=== PATIENT | female | born 1955 | race Caucasian/White ===

== ENCOUNTER → 2017-09-06 | Outpatient (CLI) | payer OTHER ==
[~2017-09-06] MED LIST: CARVEDILOL; CEPH500 PO; CYCL10 PO; HYDACE5 PO; HYDR1TAB94 PO; LEVOTHYROXINE; NAPR500 PO; Naprosyn500 MG PO; OXYACE5T PO; PRED10 PO; Percocet 5-3251 EACH PO; SULTRIDS PO; Zofran Odt8 MG SL; [UNRECOGNIZED DRUG - REMARK]
== END ==
LOC: LAB EV 11:59 → LAB SHORT 11:59
DX: E03.9 Hypothyroidism, unspecified (principal)
CPT/HCPCS: 84443

== ENCOUNTER 2018-12-08 06:16 | Day surgery (SDC) | payer OTHER ==
[~2018-12-08] VITALS: Ht 172.7 cm; Wt 81.5 kg
[~2018-12-08 06:16] MED LIST changes: +Daily Multiple1 EACH PO; +Prinivil10 MG PO; +SYNTHROID150 MC1 PO; +TRIPLE MAGNESI400 MG PO
[2018-12-08] MEDS ORDERED: Collagen Plus1 EACH (06:47)
--- NOTE | 2018-12-08 06:59 | NUR ---
12/08/18 0659 Jeanette Plunkett PRE OP TEACHING DONE. PT IS RESTING IN BED WITH CALL LIGHT IN REACH. NO FAMILY PRESENT.
== END 2018-12-08 09:20 | disposition home or self-care (01) ==
LOC: ORSCSDS 06:16
PROVIDERS: Orthopaedic Surgery
PROC: 0LN80ZZ Release Left Hand Tendon, Open Approach (ICD-10-PCS; principal; 2018-12-08 07:30)
PROC: 01N50ZZ Release Median Nerve, Open Approach (ICD-10-PCS; principal; 2018-12-08 07:30)
DX: G56.02 Carpal tunnel syndrome, left upper limb (principal); M65.312 Trigger thumb, left thumb; E03.9 Hypothyroidism, unspecified; M79.7 Fibromyalgia; Z79.899 Other long term (current) drug therapy
CPT/HCPCS: J0690; J1100; J1885; J2250; J2405; J2704; J3010; J7120

== ENCOUNTER → 2019-03-18 | Outpatient (CLI) | payer OTHER ==
[~2019-03-18] MED LIST changes: +Collagen Plus1 EACH
[2019-03-18 14:02] LABS: BASOPHILS ABSOLUTE AUTO 0.07 K/mm3 (0.00-0.23); BASOPHILS PERCENT AUTO 1 % (0-2); EOSINOPHILS ABSOLUTE AUTO 0.45 K/mm3 (0.00-0.68); EOSINOPHILS PERCENT AUTO 4 % (0-6); Hematocrit 40.1 % (33.0-51.0); Hemoglobin 13.7 g/dL (11.5-16.0); IMMATURE GRAN ABSOLUTE AUTO 0.06 K/mm3 (0.00-0.10); IMMATURE GRAN PERCENT AUTO 1 % (0-1); LYMPHOCYTES ABSOLUTE AUTO 1.83 K/mm3 (0.84-5.20); LYMPHOCYTES PERCENT AUTO 15 % (21-46); MONOCYTES ABSOLUTE AUTO 0.49 K/mm3 (0.16-1.47); MONOCYTES PERCENT AUTO 4 % (4-13); Mean Corpuscular HGB 31.5 pg (26.0-34.0); Mean Corpuscular HGB Conc 34.2 g/dL (31.5-36.5); Mean Corpuscular Volume 92 fL (80-100); Mean Platelet Volume 9.5 fL (9.1-12.4); NEUTROPHILS PERCENT AUTO 76 % (41-73); Platelet Count 369 K/mm3 (150-400); RDW Coefficient Variation 12.9 % (11.7-14.2); RDW Standard Deviation 43.7 fL (35.1-46.3); Red Blood Cell Count 4.35 M/mm3 (3.80-5.20)
[2019-03-18 14:09] LABS: Albumin, Blood 4.4 g/dL (3.4-5.0); Albumin/Globulin Ratio 1.1 (0.8-1.8); Bilirubin, Total 0.2 mg/dL (0.1-1.0); Bun/Creatinine Ratio 15.7 (12.0-20.0); Calcium, Blood 9.2 mg/dL (8.5-10.1); Creatinine, Blood 1.78 mg/dL (0.40-1.00); Globulin, Blood 3.9 g/dL (2.2-4.0); Potassium, Blood 3.7 mmol/L (3.5-5.5); Thyroid Stimulating Hormone 78.453 uIU/mL (0.360-4.800); Total Protein, Blood 8.3 g/dL (6.4-8.2)
== END | disposition home or self-care (01) ==
LOC: LAB EV 13:44 → LAB SHORT 13:44
PROVIDERS: Physician Assistant
DX: E03.9 Hypothyroidism, unspecified (principal); R73.9 Hyperglycemia, unspecified
CPT/HCPCS: 80053; 83036; 84443; 85025

== ENCOUNTER → 2019-04-24 | Outpatient (CLI) | payer OTHER ==
[2019-04-24 18:18] LABS: Source, Urine Clean Catch
[2019-04-24 18:33] LABS: Bacteria Not Seen /hpf; Red Blood Cells, Urine 0-2 /hpf (0-2); Squamous Epithelial Cells Rare /hpf (Few); White Blood Cells, Urine 0-2 /hpf (0-5)
== END | disposition home or self-care (01) ==
LOC: LAB EV 09:30 → LAB SHORT 09:30
PROVIDERS: Physician Assistant
DX: R94.4 Abnormal results of kidney function studies (principal)
CPT/HCPCS: 81015

== ENCOUNTER 2019-12-19 09:23 | Day surgery (SDC) | payer OTHER ==
[~2019-12-19] VITALS: Ht 172.7 cm; Wt 88.7 kg
[2019-12-19 12:22] LABS: BASOPHILS ABSOLUTE AUTO 0.04 K/mm3 (0.00-0.23); BASOPHILS PERCENT AUTO 0 % (0-2); EOSINOPHILS PERCENT AUTO 5 % (0-6); Hematocrit 33.8 % (33.0-51.0); Hemoglobin 10.7 g/dL (11.5-16.0); IMMATURE GRAN ABSOLUTE AUTO 0.06 K/mm3 (0.00-0.10); IMMATURE GRAN PERCENT AUTO 1 % (0-1); LYMPHOCYTES PERCENT AUTO 16 % (21-46); MONOCYTES ABSOLUTE AUTO 0.67 K/mm3 (0.16-1.47); MONOCYTES PERCENT AUTO 6 % (4-13); Mean Corpuscular HGB 27.9 pg (26.0-34.0); Mean Corpuscular HGB Conc 31.7 g/dL (31.5-36.5); Mean Corpuscular Volume 88 fL (80-100); Mean Platelet Volume 9.6 fL (9.1-12.4); NEUTROPHILS ABSOLUTE AUTO 7.45 K/mm3 (1.96-9.15); NEUTROPHILS PERCENT AUTO 72 % (41-73); Platelet Count 344 K/mm3 (150-400); RDW Standard Deviation 41.2 fL (35.1-46.3); Red Blood Cell Count 3.84 M/mm3 (3.80-5.20); White Blood Cell Count 10.42 K/mm3 (4.00-11.30)
[2019-12-19 14:11] LABS: Alanine Aminotransfer (ALT/SGP 24 U/L (12-78); Albumin, Blood 3.4 g/dL (3.4-5.0); Alk Phos 105 U/L (50-136); Anion Gap 9 mmol/L (6-16); Aspartate Aminotrans (AST/SGOT 7 U/L (12-37); Bilirubin, Total 0.4 mg/dL (0.1-1.0); Blood Urea Nitrogen 12 mg/dL (8-24); Bun/Creatinine Ratio 14.5 (12.0-20.0); CO2, Blood 23 mmol/L (21-32); Chloride, Blood 112 mmol/L (98-108); Creatinine, Blood 0.83 mg/dL (0.40-1.00); Globulin, Blood 3.5 g/dL (2.2-4.0); Glomerular Filtration Rate >60 (60-); Glucose, Blood 112 mg/dL (70-99); Potassium, Blood 3.6 mmol/L (3.5-5.5); Sodium, Blood 144 mmol/L (136-145); Total Protein, Blood 6.9 g/dL (6.4-8.2)
== END 2019-12-19 12:19 | disposition home or self-care (01) ==
LOC: ORSCSDS 09:23
PROVIDERS: Internal Medicine Gastroenterology
PROC: 0DBP8ZX Excision of Rectum, Via Natural or Artificial Opening Endoscopic, Diagnostic (ICD-10-PCS; principal; 2019-12-19 11:00)
DX: K62.5 Hemorrhage of anus and rectum (principal); C20 Malignant neoplasm of rectum; K63.89 Other specified diseases of intestine; I10 Essential (primary) hypertension; E03.9 Hypothyroidism, unspecified; E66.9 Obesity, unspecified; Z68.32 Body mass index [BMI] 32.0-32.9, adult; Z79.899 Other long term (current) drug therapy
CPT/HCPCS: 80053; 82378; 85025; 88305; J2704; J7120

== ENCOUNTER 2020-04-13 19:46 | Emergency (ER) | payer OTHER ==
[~2020-04-13] VITALS: Ht 165.1 cm; Wt 88.5 kg
[2020-04-13 20:48] LABS: BASOPHILS ABSOLUTE AUTO 0.01 K/mm3 (0.00-0.23); BASOPHILS PERCENT AUTO 0 % (0-2); EOSINOPHILS ABSOLUTE AUTO 0.07 K/mm3 (0.00-0.68); EOSINOPHILS PERCENT AUTO 2 % (0-6); Hematocrit 32.1 % (33.0-51.0); IMMATURE GRAN ABSOLUTE AUTO 0.01 K/mm3 (0.00-0.10); IMMATURE GRAN PERCENT AUTO 0 % (0-1); LYMPHOCYTES PERCENT AUTO 31 % (21-46); MONOCYTES ABSOLUTE AUTO 0.34 K/mm3 (0.16-1.47); MONOCYTES PERCENT AUTO 8 % (4-13); Mean Corpuscular HGB 30.7 pg (26.0-34.0); Mean Corpuscular HGB Conc 34.3 g/dL (31.5-36.5); Mean Corpuscular Volume 90 fL (80-100); NEUTROPHILS PERCENT AUTO 59 % (41-73); Platelet Count 105 K/mm3 (150-400); RDW Coefficient Variation 16.3 % (11.7-14.2); RDW Standard Deviation 53.1 fL (35.1-46.3); Red Blood Cell Count 3.58 M/mm3 (3.80-5.20); White Blood Cell Count 4.23 K/mm3 (4.00-11.30)
[2020-04-13] MEDS ORDERED: METO10 PO (21:03)
[2020-04-13 21:08] LABS: Alanine Aminotransfer (ALT/SGP 42 U/L (12-78); Albumin, Blood 3.2 g/dL (3.4-5.0); Alk Phos 119 U/L (50-136); Anion Gap 9 mmol/L (6-16); Aspartate Aminotrans (AST/SGOT 22 U/L (12-37); Bilirubin, Total 0.5 mg/dL (0.1-1.0); Blood Urea Nitrogen 28 mg/dL (8-24); Bun/Creatinine Ratio 26.2 (12.0-20.0); CO2, Blood 27 mmol/L (21-32); Calcium, Blood 8.6 mg/dL (8.5-10.1); Chloride, Blood 100 mmol/L (98-108); Creatinine, Blood 1.07 mg/dL (0.40-1.00); Globulin, Blood 3.3 g/dL (2.2-4.0); Glomerular Filtration Rate 55 (60-); Glucose, Blood 254 mg/dL (70-99); Potassium, Blood 3.4 mmol/L (3.5-5.5); Sodium, Blood 136 mmol/L (136-145); Total Protein, Blood 6.5 g/dL (6.4-8.2); Troponin I <0.015 ng/mL (0.000-0.040)
== END 2020-04-13 23:42 | disposition home or self-care (01) ==
LOC: ER 19:46
PROVIDERS: Student in an Organized Health Care Education/Training Program
DX: E86.0 Dehydration (principal); Z88.5 Allergy status to narcotic agent; Z88.8 Allergy status to other drugs, medicaments and biological substances; Z79.899 Other long term (current) drug therapy; Z87.891 Personal history of nicotine dependence
CPT/HCPCS: 36415; 80053; 82947; 84484; 85025; 93005; 93010; 96360; 99284-25; J7030

== ENCOUNTER 2020-04-22 15:21 | Day surgery (SDC) | payer OTHER ==
[~2020-04-22 15:21] MED LIST changes: +METO10 PO
== END 2020-04-22 22:51 | disposition home or self-care (01) ==
LOC: RAD 15:21
DX: I97.89 Other postprocedural complications and disorders of the circulatory system, not elsewhere classified (principal); C20 Malignant neoplasm of rectum; Z79.899 Other long term (current) drug therapy; Z88.5 Allergy status to narcotic agent; Z88.8 Allergy status to other drugs, medicaments and biological substances; Y84.0 Cardiac catheterization as the cause of abnormal reaction of the patient, or of later complication, without mention of misadventure at the time of the procedure
CPT/HCPCS: 36598; Q9967

== ENCOUNTER 2020-04-25 09:47 | Day surgery (SDC) | payer OTHER | END 2020-04-25 13:54 | disposition home or self-care (01) | LOC: ATC 09:47 | DX: Z45.1 Encounter for adjustment and management of infusion pump (principal); C20 Malignant neoplasm of rectum; E03.9 Hypothyroidism, unspecified; I10 Essential (primary) hypertension; G47.00 Insomnia, unspecified; G25.81 Restless legs syndrome; M79.7 Fibromyalgia; Z88.5 Allergy status to narcotic agent; Z88.8 Allergy status to other drugs, medicaments and biological substances | CPT/HCPCS: J1642 ==

== ENCOUNTER 2020-04-27 09:25 | Emergency (ER) | payer OTHER ==
[~2020-04-27] VITALS: Ht 172.7 cm; Wt 88.0 kg
[2020-04-27 10:08] LABS: BASOPHILS ABSOLUTE AUTO 0.03 K/mm3 (0.00-0.23); BASOPHILS PERCENT AUTO 1 % (0-2); EOSINOPHILS ABSOLUTE AUTO 0.07 K/mm3 (0.00-0.68); EOSINOPHILS PERCENT AUTO 2 % (0-6); Hemoglobin 12.5 g/dL (11.5-16.0); IMMATURE GRAN ABSOLUTE AUTO 0.01 K/mm3 (0.00-0.10); IMMATURE GRAN PERCENT AUTO 0 % (0-1); LYMPHOCYTES ABSOLUTE AUTO 1.41 K/mm3 (0.84-5.20); LYMPHOCYTES PERCENT AUTO 33 % (21-46); MONOCYTES ABSOLUTE AUTO 0.17 K/mm3 (0.16-1.47); MONOCYTES PERCENT AUTO 4 % (4-13); Mean Corpuscular HGB 30.4 pg (26.0-34.0); Mean Corpuscular HGB Conc 32.9 g/dL (31.5-36.5); Mean Corpuscular Volume 93 fL (80-100); NEUTROPHILS ABSOLUTE AUTO 2.59 K/mm3 (1.96-9.15); NEUTROPHILS PERCENT AUTO 61 % (41-73); Platelet Count 166 K/mm3 (150-400); RDW Coefficient Variation 16.6 % (11.7-14.2); RDW Standard Deviation 55.9 fL (35.1-46.3); Red Blood Cell Count 4.11 M/mm3 (3.80-5.20); White Blood Cell Count 4.28 K/mm3 (4.00-11.30)
[2020-04-27 10:25] LABS: Alanine Aminotransfer (ALT/SGP 58 U/L (12-78); Albumin, Blood 3.7 g/dL (3.4-5.0); Albumin/Globulin Ratio 0.9 (0.8-1.8); Alk Phos 153 U/L (50-136); Anion Gap 11 mmol/L (6-16); Aspartate Aminotrans (AST/SGOT 37 U/L (12-37); Bilirubin, Total 0.7 mg/dL (0.1-1.0); Blood Urea Nitrogen 23 mg/dL (8-24); CO2, Blood 25 mmol/L (21-32); Calcium, Blood 8.9 mg/dL (8.5-10.1); Chloride, Blood 103 mmol/L (98-108); Creatinine, Blood 0.82 mg/dL (0.40-1.00); Glomerular Filtration Rate >60 (60-); Glucose, Blood 153 mg/dL (70-99); Potassium, Blood 3.2 mmol/L (3.5-5.5); Sodium, Blood 139 mmol/L (136-145); Total Protein, Blood 7.7 g/dL (6.4-8.2)
[2020-04-27 10:55] LABS: Source, Urine Clean Catch
[2020-04-27 11:00] LABS: Appearance, Urine Clear (Clear); Bilirubin, Urine Neg (Neg); Blood, Urine 5+ (Neg); Color, Urine Amber (P-Yellow); Glucose Qualitative, Urine Neg (Neg); Ketones, Urine Neg (Neg); Leukocyte Esterase, Urine 2+ (Neg); Nitrite, Urine Neg (Neg); Protein, Urine 1+ (Neg); Specific Gravity, Urine 1.015 (1.003-1.022); Urobilinogen, Urine 1+ (Normal)
[2020-04-27 11:22] LABS: Mucus Mod (0-Heavy)
[2020-04-27 11:23] LABS: Hyaline Casts 0-2 /lpf (0-2); Red Blood Cells, Urine 0-2 /hpf (0-2); Squamous Epithelial Cells Few /hpf (Few)
[2020-04-27 11:24] LABS: Bacteria Few /hpf
== END 2020-04-27 13:46 | disposition home or self-care (01) ==
LOC: ER 09:25
PROVIDERS: Physician Assistant
DX: N93.9 Abnormal uterine and vaginal bleeding, unspecified (principal); Z79.899 Other long term (current) drug therapy; Z87.891 Personal history of nicotine dependence
CPT/HCPCS: 36415; 74177; 80053; 81001; 85025; 87086; 96374; 99284-25; J2060; Q9967

== ENCOUNTER 2020-05-20 07:40 | Day surgery (SDC) | payer OTHER ==
[~2020-05-20] VITALS: Ht 170.2 cm; Wt 84.7 kg
--- NOTE | 2020-05-20 08:57 | NUR ---
Ambulatory in Day Surgery History, Chart, Medications and Allergies reviewed before start of procedure. Lungs clear T/O to Auscultation. Patient confirms NPO status and agrees with scheduled surgery. Patient States Post-Procedure ride home has been arranged. Pre-Op teaching done. Pt verbalizes understanding.
--- NOTE | 2020-05-20 11:37 | NUR ---
Patient up to Ambulate independently. Gait steady. Discharge instructions reviewed with patient. Patient verbalizes understanding. Copy given to patient to take home. Discharged via wheelchair to private car for ride home. DENIES PAIN, REPORTS MILD SORENES, STATES FEELS WILL BE OK AT HOME WITHOUT NARCOTIC PAIN MEDS. DENIES NAUSEA.
== END 2020-05-20 11:32 | disposition home or self-care (01) ==
LOC: ORSCMMR 07:40 → ORD 09:30 → ORSCMMR 09:30
PROVIDERS: Surgery
PROC: B5141ZA Fluoroscopy of Left Jugular Veins using Low Osmolar Contrast, Guidance (ICD-10-PCS; principal; 2020-05-20 09:30)
PROC: 05HN33Z Insertion of Infusion Device into Left Internal Jugular Vein, Percutaneous Approach (ICD-10-PCS; principal; 2020-05-20 09:30)
DX: C20 Malignant neoplasm of rectum (principal); Z45.2 Encounter for adjustment and management of vascular access device; I10 Essential (primary) hypertension; E03.9 Hypothyroidism, unspecified; M79.7 Fibromyalgia; Z79.899 Other long term (current) drug therapy
CPT/HCPCS: J1100; J2250; J2405; J2704; J3010; J7120

== ENCOUNTER 2020-05-29 18:06 | Observation (INO) | payer OTHER ==
[~2020-05-29] VITALS: Ht 172.7 cm; Wt 82.5 kg
[2020-05-29 18:45] LABS: BASOPHILS PERCENT AUTO 0 % (0-2); EOSINOPHILS PERCENT AUTO 0 % (0-6); Hemoglobin 12.3 g/dL (11.5-16.0); IMMATURE GRAN ABSOLUTE AUTO 0.02 K/mm3 (0.00-0.10); IMMATURE GRAN PERCENT AUTO 0 % (0-1); LYMPHOCYTES ABSOLUTE AUTO 0.55 K/mm3 (0.84-5.20); LYMPHOCYTES PERCENT AUTO 12 % (21-46); MONOCYTES ABSOLUTE AUTO 0.45 K/mm3 (0.16-1.47); MONOCYTES PERCENT AUTO 10 % (4-13); Mean Corpuscular HGB 31.5 pg (26.0-34.0); Mean Corpuscular HGB Conc 34.2 g/dL (31.5-36.5); Mean Corpuscular Volume 92 fL (80-100); Mean Platelet Volume 10.6 fL (9.1-12.4); NEUTROPHILS ABSOLUTE AUTO 3.59 K/mm3 (1.96-9.15); NEUTROPHILS PERCENT AUTO 78 % (41-73); Platelet Count 143 K/mm3 (150-400); RDW Coefficient Variation 14.1 % (11.7-14.2); Red Blood Cell Count 3.91 M/mm3 (3.80-5.20); White Blood Cell Count 4.61 K/mm3 (4.00-11.30)
[2020-05-29 19:10] LABS: Albumin, Blood 3.7 g/dL (3.4-5.0); Bilirubin, Total 0.6 mg/dL (0.1-1.0); Bun/Creatinine Ratio 28.8 (12.0-20.0); Calcium, Blood 8.9 mg/dL (8.5-10.1); Creatinine, Blood 1.77 mg/dL (0.40-1.00); Globulin, Blood 3.8 g/dL (2.2-4.0); Potassium, Blood 3.7 mmol/L (3.5-5.5); Total Protein, Blood 7.5 g/dL (6.4-8.2)
[2020-05-29] MEDS ORDERED: CAPECITABINE150 MG PO (20:58)
[2020-05-29] MEDS ORDERED: CHLO25B PO (20:59)
[2020-05-29] MEDS ORDERED: CAPECITABINE500 MG PO (20:59)
[2020-05-29] MEDS ORDERED: ZESTRIL40 M1 PO (20:59)
[2020-05-29] MEDS ORDERED: EUTHYROX137 MC1 PO (20:59)
[2020-05-29] MEDS ORDERED: PROZAC20 M3 PO (21:00)
--- NOTE | 2020-05-30 01:09 | NUR ---
ADMIT NOTE RECEIVED HANDOFF FROM ER NURSE LOREE. PT ARRIVED ON FLOOR VIA WHEELCHAIR. PERSONAL POSSESSIONS WITH PT. PT ORIENTED TO UNIT. CALL BUTTON WITHIN REACH. NS W/KCL 20 MEQ INFUSING @ 150 ML/HR ORDERED.
[2020-05-30 05:59] LABS: BASOPHILS ABSOLUTE AUTO 0.01 K/mm3 (0.00-0.23); BASOPHILS PERCENT AUTO 0 % (0-2); EOSINOPHILS PERCENT AUTO 0 % (0-6); Hematocrit 30.3 % (33.0-51.0); Hemoglobin 10.2 g/dL (11.5-16.0); IMMATURE GRAN ABSOLUTE AUTO 0.01 K/mm3 (0.00-0.10); IMMATURE GRAN PERCENT AUTO 0 % (0-1); LYMPHOCYTES ABSOLUTE AUTO 0.79 K/mm3 (0.84-5.20); LYMPHOCYTES PERCENT AUTO 31 % (21-46); MONOCYTES PERCENT AUTO 12 % (4-13); Mean Corpuscular HGB 31.7 pg (26.0-34.0); Mean Corpuscular HGB Conc 33.7 g/dL (31.5-36.5); Mean Corpuscular Volume 94 fL (80-100); Mean Platelet Volume 10.3 fL (9.1-12.4); NEUTROPHILS ABSOLUTE AUTO 1.42 K/mm3 (1.96-9.15); NEUTROPHILS PERCENT AUTO 56 % (41-73); Platelet Count 100 K/mm3 (150-400); RDW Standard Deviation 48.8 fL (35.1-46.3); Red Blood Cell Count 3.22 M/mm3 (3.80-5.20); White Blood Cell Count 2.53 K/mm3 (4.00-11.30)
[2020-05-30 06:16] LABS: Albumin, Blood 2.6 g/dL (3.4-5.0); Anion Gap 6 mmol/L (6-16); Blood Urea Nitrogen 43 mg/dL (8-24); Bun/Creatinine Ratio 29.3 (12.0-20.0); CO2, Blood 23 mmol/L (21-32); Calcium, Blood 7.4 mg/dL (8.5-10.1); Chloride, Blood 112 mmol/L (98-108); Creatinine, Blood 1.47 mg/dL (0.40-1.00); Glomerular Filtration Rate 38 (60-); Glucose, Blood 79 mg/dL (70-99); Phosphorus, Blood 2.8 mg/dL (2.5-4.9); Potassium, Blood 3.9 mmol/L (3.5-5.5); Sodium, Blood 141 mmol/L (136-145); Thyroid Stimulating Hormone 0.085 uIU/mL (0.360-4.800)
--- NOTE | 2020-05-30 19:26 | NUR ---
a+o, able to self transfer to bathroom with sba r/iv lines, no acute changes noted during shift, no bm so still in isolation for ruling out cdif, rm air, fluids infusing with no s/sx of infection or infiltration, no acute changes noted during shift, bsr shared with noc nurse and pt
[2020-05-30 21:30] LABS: Source, Urine Clean Catch
[2020-05-30 21:34] LABS: Appearance, Urine Clear (Clear); Bilirubin, Urine Neg (Neg); Blood, Urine Neg (Neg); Color, Urine Yellow (P-Yellow); Glucose Qualitative, Urine Neg (Neg); Ketones, Urine Neg (Neg); Leukocyte Esterase, Urine 1+ (Neg); Nitrite, Urine Neg (Neg); Protein, Urine Neg (Neg); Specific Gravity, Urine 1.015 (1.003-1.022); Urobilinogen, Urine NORM (Normal)
[2020-05-30 21:46] LABS: Bacteria Rare /hpf; Red Blood Cells, Urine Not Seen /hpf (0-2); Squamous Epithelial Cells Rare /hpf (Few); White Blood Cells, Urine 0-2 /hpf (0-5)
[2020-05-31 05:05] LABS: BASOPHILS PERCENT AUTO 0 % (0-2); EOSINOPHILS ABSOLUTE AUTO 0.01 K/mm3 (0.00-0.68); EOSINOPHILS PERCENT AUTO 0 % (0-6); Hematocrit 29.9 % (33.0-51.0); IMMATURE GRAN ABSOLUTE AUTO 0.01 K/mm3 (0.00-0.10); IMMATURE GRAN PERCENT AUTO 0 % (0-1); LYMPHOCYTES ABSOLUTE AUTO 0.56 K/mm3 (0.84-5.20); LYMPHOCYTES PERCENT AUTO 24 % (21-46); MONOCYTES ABSOLUTE AUTO 0.19 K/mm3 (0.16-1.47); MONOCYTES PERCENT AUTO 8 % (4-13); Mean Corpuscular HGB 31.3 pg (26.0-34.0); Mean Corpuscular HGB Conc 33.4 g/dL (31.5-36.5); Mean Corpuscular Volume 94 fL (80-100); Mean Platelet Volume 10.4 fL (9.1-12.4); NEUTROPHILS ABSOLUTE AUTO 1.61 K/mm3 (1.96-9.15); NEUTROPHILS PERCENT AUTO 68 % (41-73); Platelet Count 82 K/mm3 (150-400); RDW Coefficient Variation 13.8 % (11.7-14.2); RDW Standard Deviation 47.3 fL (35.1-46.3); Red Blood Cell Count 3.19 M/mm3 (3.80-5.20); White Blood Cell Count 2.38 K/mm3 (4.00-11.30)
--- NOTE | 2020-05-31 05:43 | NUR ---
SHIFT SUMMARY- PT. A&O, SBA CALLS APPROPRIATELY. HAD NO COMPLAINTS DURING THE NIGHT. LOW GRADE TEMP NOTED LAST NIGHT, NEW ORDERS IN PLACE BY DR. CARDONA. PT. STARTED ON IV ABX'S, TOLERATING WELL. ISOLATION DC'D, UNABLE TO OBTAIN STOOL SPECIMEN. PT. DENIES BM. PT APPEARED TO HAVE RESTED COMFORTABLY T/O THE NIGHT, NO APPARENT DISTRESS NOTED. THIS AM VSS. CALL LIGHT WITHIN REACH AND SIDE RAILS UPX2. WILL CONT TO MONITOR.
[2020-05-31 05:46] LABS: Albumin, Blood 2.5 g/dL (3.4-5.0); Albumin/Globulin Ratio 0.7 (0.8-1.8); Bilirubin, Total 0.4 mg/dL (0.1-1.0); Bun/Creatinine Ratio 25.2 (12.0-20.0); Calcium, Blood 7.8 mg/dL (8.5-10.1); Creatinine, Blood 0.99 mg/dL (0.40-1.00); Globulin, Blood 3.4 g/dL (2.2-4.0); Potassium, Blood 4.3 mmol/L (3.5-5.5); Total Protein, Blood 5.9 g/dL (6.4-8.2)
[2020-05-31 14:06] LABS: Influenza A, PCR NEGATIVE (NEGATIVE); Influenza B, PCR NEGATIVE (NEGATIVE); Resp Syncytial Virus, PCR NEGATIVE (NEGATIVE)
[2020-05-31 14:21] LABS: SARS-Cov-2 (COVID-19) PCR, MMC POSITIVE (NEGATIVE)
--- NOTE | 2020-05-31 18:32 | NUR ---
SHIFT SUMMARY PT A/O X4 AND ANXIOUS. AFTER FINDING SIGNS OF PNEUMONIA ON HER CHEST X-RAY THE PATIENT WAS TESTED FOR COVID-19 AND TESTING POSITIVE. PHYSICIAN MADE AWARE AND EXPOSED EMPLOYEES NOTIFIED. PT IS SHOWING NO SIGNS OF HYPOXIA OR RESPIRATORY DISTRESS. PT TEMPERATURE SLIGHTLY ELEVATED AT TIMES. VERY ANXIOUS DUE TO THE POSIBILITY OF DISCHARGE. PT IS THE PRIMARY CAREGIVER OF DISABLED AND IS WORRIED ABOUT EXPOSURE. MEDICATED X1 FOR ANXIETY. BESIDES SLIGHTLY ELEVATE TEMP; VSS. WILL REPORT TO NOC RN.
--- NOTE | 2020-06-01 05:24 | NUR ---
SHIFT SUMMARY- NO ACUTE EVENTS OVERNIGHT. PT. ASLEEP MOST OF THE SHIFT, NO APPARENT DISTRESS NOTED. COVID POS, NO C/O PAIN/DISCOMFORT OR SOB DURING THE NIGHT. STARTED ON DECADRON LAST NIGHT. LOW GRADE TEMP, OTHER VITALS STABLE. MEDICATED WITH TYLENOL PER EMAR WITH GOOD EFFECT. PT. DENIES NEEDS AT THIS TIME. CALL LIGHT WITHIN REACH AND SIDE RAILS UPX2. WILL CONT TO MONITOR.
[2020-06-01 05:48] LABS: BASOPHILS PERCENT AUTO 0 % (0-2); EOSINOPHILS PERCENT AUTO 0 % (0-6); Hematocrit 33.9 % (33.0-51.0); Hemoglobin 11.8 g/dL (11.5-16.0); IMMATURE GRAN ABSOLUTE AUTO 0.03 K/mm3 (0.00-0.10); IMMATURE GRAN PERCENT AUTO 1 % (0-1); LYMPHOCYTES ABSOLUTE AUTO 0.35 K/mm3 (0.84-5.20); LYMPHOCYTES PERCENT AUTO 15 % (21-46); MONOCYTES ABSOLUTE AUTO 0.12 K/mm3 (0.16-1.47); MONOCYTES PERCENT AUTO 5 % (4-13); Mean Corpuscular HGB 31.5 pg (26.0-34.0); Mean Corpuscular HGB Conc 34.8 g/dL (31.5-36.5); Mean Corpuscular Volume 90 fL (80-100); Mean Platelet Volume 10.3 fL (9.1-12.4); NEUTROPHILS ABSOLUTE AUTO 1.92 K/mm3 (1.96-9.15); NEUTROPHILS PERCENT AUTO 79 % (41-73); Platelet Count 92 K/mm3 (150-400); RDW Coefficient Variation 13.2 % (11.7-14.2); RDW Standard Deviation 44.3 fL (35.1-46.3); Red Blood Cell Count 3.75 M/mm3 (3.80-5.20); White Blood Cell Count 2.42 K/mm3 (4.00-11.30)
[2020-06-01 06:03] LABS: Alanine Aminotransfer (ALT/SGP 64 U/L (12-78); Albumin, Blood 2.8 g/dL (3.4-5.0); Albumin/Globulin Ratio 0.7 (0.8-1.8); Alk Phos 218 U/L (50-136); Anion Gap 7 mmol/L (6-16); Aspartate Aminotrans (AST/SGOT 80 U/L (12-37); Bilirubin, Total 0.9 mg/dL (0.1-1.0); Blood Urea Nitrogen 16 mg/dL (8-24); Bun/Creatinine Ratio 18.5 (12.0-20.0); CO2, Blood 22 mmol/L (21-32); Calcium, Blood 8.2 mg/dL (8.5-10.1); Chloride, Blood 111 mmol/L (98-108); Creatinine, Blood 0.86 mg/dL (0.40-1.00); Globulin, Blood 3.9 g/dL (2.2-4.0); Glomerular Filtration Rate >60 (60-); Glucose, Blood 136 mg/dL (70-99); Potassium, Blood 3.9 mmol/L (3.5-5.5); Sodium, Blood 140 mmol/L (136-145); Total Protein, Blood 6.7 g/dL (6.4-8.2)
[2020-06-01] MEDS ORDERED: AMOCLA500 PO (14:56)
[2020-06-01] MEDS ORDERED: LORA.5 PO (14:56)
--- NOTE | 2020-06-01 15:58 | NUR ---
DISCHARGE SUMMARY PT AXO, COOPERATIVE WITH CARE. DISCHARGED TO HOME PER ORDERS. IV DC'D AND BELONGINGS RETURNED. PT LEFT ROOM VIA WHEELCHAIR WITH RN ESCORT. PT EDUCATED ON ALL DC INSTRUCTION, ALL QUESTIONS ANSWERED. PT AGREES. PRESCRIPTIONS FAXED TO [facility].
--- NOTE | 2020-06-01 16:07 | NUR ---
PRESCRIPTION PT DISCHARGED PRIOR TO HAVING PRESCRIPTION IN HAND. THIS NURSE RECEIVED PRESCRIPTION AND CALLED PATIENT TO COME BACK FOR IT. PT STATED THAT SHE WAS ALREADY HOME AND MAY OR MAY NOT SEND SOMEONE TO PICK IT UP. PRESCRIPTION AT MAIN NURSE STATION AT THIS TIME. CHARGE NURSE AWARE.
[2020-06-02] MEDS ORDERED: CHLO25B PO (11:44)
[2020-06-02] MEDS ORDERED: Ropinirole HCl1 MG PO (20:42)
== END 2020-06-01 15:35 | disposition home or self-care (01) ==
LOC: ER 18:06 → MEDS 23:50
PROVIDERS: Internal Medicine; Nurse Practitioner Acute Care; Physician Assistant; ADMIT Internal Medicine
DX: R11.2 Nausea with vomiting, unspecified (principal); R50.9 Fever, unspecified; D61.818 Other pancytopenia; C20 Malignant neoplasm of rectum; U07.1 COVID-19; D84.9 Immunodeficiency, unspecified
CPT/HCPCS: 0241U; 36415; 71045; 80053; 80069; 81001; 83605; 84443; 85025; 87040; 87086; 96361; 96365; 96366; 96372; 96375; 96376; 99285-25; A9270; G0378; J1650; J2405; J2543; J2550; J3370; J3480; J7030

== ENCOUNTER 2020-06-01 21:33 | Inpatient (IN) | payer OTHER ==
[~2020-06-01] VITALS: Ht 162.6 cm; Wt 79.0 kg
[~2020-06-01 21:33] MED LIST changes: +AMOCLA500 PO; +CAPECITABINE150 MG PO; +CAPECITABINE500 MG PO; +CHLO25B PO; +EUTHYROX137 MC1 PO; +LORA.5 PO; +PROZAC20 M3 PO; +ZESTRIL40 M1 PO
[2020-06-01 23:20] LABS: BASOPHILS ABSOLUTE AUTO 0.01 K/mm3 (0.00-0.23); BASOPHILS PERCENT AUTO 0 % (0-2); EOSINOPHILS PERCENT AUTO 0 % (0-6); Hematocrit 33.4 % (33.0-51.0); Hemoglobin 11.8 g/dL (11.5-16.0); IMMATURE GRAN ABSOLUTE AUTO 0.05 K/mm3 (0.00-0.10); IMMATURE GRAN PERCENT AUTO 1 % (0-1); LYMPHOCYTES ABSOLUTE AUTO 0.63 K/mm3 (0.84-5.20); LYMPHOCYTES PERCENT AUTO 9 % (21-46); MONOCYTES ABSOLUTE AUTO 0.37 K/mm3 (0.16-1.47); MONOCYTES PERCENT AUTO 5 % (4-13); Mean Corpuscular HGB 31.3 pg (26.0-34.0); Mean Corpuscular HGB Conc 35.3 g/dL (31.5-36.5); Mean Corpuscular Volume 89 fL (80-100); Mean Platelet Volume 10.4 fL (9.1-12.4); NEUTROPHILS ABSOLUTE AUTO 5.83 K/mm3 (1.96-9.15); NEUTROPHILS PERCENT AUTO 85 % (41-73); Platelet Count 128 K/mm3 (150-400); RDW Coefficient Variation 13.3 % (11.7-14.2); RDW Standard Deviation 43.2 fL (35.1-46.3); Red Blood Cell Count 3.77 M/mm3 (3.80-5.20); White Blood Cell Count 6.89 K/mm3 (4.00-11.30)
[2020-06-01 23:39] LABS: Alanine Aminotransfer (ALT/SGP 54 U/L (12-78); Albumin, Blood 2.8 g/dL (3.4-5.0); Albumin/Globulin Ratio 0.8 (0.8-1.8); Alk Phos 196 U/L (50-136); Anion Gap 10 mmol/L (6-16); Aspartate Aminotrans (AST/SGOT 56 U/L (12-37); Bilirubin, Total 0.7 mg/dL (0.1-1.0); Blood Urea Nitrogen 20 mg/dL (8-24); CO2, Blood 21 mmol/L (21-32); Calcium, Blood 7.8 mg/dL (8.5-10.1); Chloride, Blood 109 mmol/L (98-108); Creatinine, Blood 0.87 mg/dL (0.40-1.00); Globulin, Blood 3.7 g/dL (2.2-4.0); Glomerular Filtration Rate >60 (60-); Glucose, Blood 111 mg/dL (70-99); Potassium, Blood 3.3 mmol/L (3.5-5.5); Sodium, Blood 140 mmol/L (136-145); Total Protein, Blood 6.5 g/dL (6.4-8.2)
[2020-06-02 00:30] LABS: CPK Creatine Kinase 70 U/L (26-193); Magnesium, Blood 1.3 mg/dL (1.6-2.4)
[2020-06-02 11:29] LABS: BASOPHILS PERCENT AUTO 0 % (0-2); EOSINOPHILS PERCENT AUTO 0 % (0-6); Hematocrit 32.2 % (33.0-51.0); Hemoglobin 11.3 g/dL (11.5-16.0); IMMATURE GRAN ABSOLUTE AUTO 0.03 K/mm3 (0.00-0.10); IMMATURE GRAN PERCENT AUTO 1 % (0-1); LYMPHOCYTES ABSOLUTE AUTO 0.39 K/mm3 (0.84-5.20); LYMPHOCYTES PERCENT AUTO 10 % (21-46); MONOCYTES PERCENT AUTO 8 % (4-13); Mean Corpuscular HGB 31.5 pg (26.0-34.0); Mean Corpuscular HGB Conc 35.1 g/dL (31.5-36.5); Mean Corpuscular Volume 90 fL (80-100); Mean Platelet Volume 10.4 fL (9.1-12.4); NEUTROPHILS ABSOLUTE AUTO 3.09 K/mm3 (1.96-9.15); NEUTROPHILS PERCENT AUTO 81 % (41-73); Platelet Count 138 K/mm3 (150-400); RDW Coefficient Variation 13.4 % (11.7-14.2); RDW Standard Deviation 44.4 fL (35.1-46.3); Red Blood Cell Count 3.59 M/mm3 (3.80-5.20); White Blood Cell Count 3.81 K/mm3 (4.00-11.30)
[2020-06-02] MEDS ORDERED: CHLO25B PO (11:44)
[2020-06-02 11:52] LABS: Alanine Aminotransfer (ALT/SGP 49 U/L (12-78); Albumin, Blood 2.6 g/dL (3.4-5.0); Albumin/Globulin Ratio 0.7 (0.8-1.8); Alk Phos 172 U/L (50-136); Anion Gap 8 mmol/L (6-16); Aspartate Aminotrans (AST/SGOT 47 U/L (12-37); Bilirubin, Total 0.5 mg/dL (0.1-1.0); Blood Urea Nitrogen 17 mg/dL (8-24); Bun/Creatinine Ratio 21.7 (12.0-20.0); CO2, Blood 22 mmol/L (21-32); Calcium, Blood 7.7 mg/dL (8.5-10.1); Chloride, Blood 110 mmol/L (98-108); Creatinine, Blood 0.78 mg/dL (0.40-1.00); Globulin, Blood 3.8 g/dL (2.2-4.0); Glomerular Filtration Rate >60 (60-); Glucose, Blood 133 mg/dL (70-99); Potassium, Blood 4.1 mmol/L (3.5-5.5); Sodium, Blood 140 mmol/L (136-145); Total Protein, Blood 6.4 g/dL (6.4-8.2)
[2020-06-02 16:34] LABS: Source, Urine Clean Catch
[2020-06-02 16:37] LABS: Appearance, Urine Clear (Clear); Bilirubin, Urine Neg (Neg); Blood, Urine Neg (Neg); Color, Urine Yellow (P-Yellow); Glucose Qualitative, Urine Neg (Neg); Ketones, Urine 1+ (Neg); Leukocyte Esterase, Urine 1+ (Neg); Nitrite, Urine Neg (Neg); Protein, Urine 1+ (Neg); Specific Gravity, Urine 1.015 (1.003-1.022); Urobilinogen, Urine NORM (Normal)
[2020-06-02 17:06] LABS: U Amphetamine Screen Not Detected; U Barbituate Screen Not Detected; U Benzodiazapine Screen Not Detected; U Cocaine Screen Not Detected; U Methamphetamine Screen Not Detected
[2020-06-02 17:07] LABS: U Buprenorphine Screen Not Detected; U Cannabinoids Screen Not Detected; U Methadone Screen Not Detected; U Opiates Screen DETECTED; U Oxycodone Screen Not Detected; U Phencyclidine Screen Not Detected; U Propoxyphene Screen Not Detected
[2020-06-02 17:33] LABS: Bacteria Rare /hpf; Red Blood Cells, Urine Not Seen /hpf (0-2); Squamous Epithelial Cells Not Seen /hpf (Few); White Blood Cells, Urine 0-2 /hpf (0-5)
--- NOTE | 2020-06-02 17:34 | NUR ---
PATIENT ARRIVES TO FLOOR VIA W/C AND C/O EXTREME AGITATION. REQUEST MED FOR IT. UNABLE TO FINISH ADMIT. CALLED AND ORDER CLONAZEPAM 0.5 MG BID PRN AND CANCEL ATIVAN. PATIENT HAD RECEIVED ATIVAN 1MG IN E.R. AT 1100 AND STS BARELY HELPED.
--- NOTE | 2020-06-02 18:07 | NUR ---
PATIENT ARRIVES LITTLE AFTER 1700. VERY ANXIOUS. WHEN ASKED WHAT SHE TAKES AT HOME "NOTHING, I HAVEN'T GOTTEN IT YET." RECENT D'C WITH RX FOR ATIVAN AND NOT FILLED. ALSO STS HAS RLS AND AT ONE TIME WAS ON REQUIP, BUT NOT FOR AWHILE. GIVEN CLONAZEPAN FOR ANXIETY AND RLS. DIABETES NURSE EQUAL WITH NO ARM DRIFT. DORSIFLEXION AND PLANTARFLEXION STRONGN AND EQUAL. PERRLA. FOOD BROUGHT IN. HEAT TURNED UP. WARM BLANKET GIVEN. DAUGHTER CALLS NURSES STATION EARLIER AND WILL ASK IF OK TO UPDATE CALLIE. TELE ON AND SR IN 'S. TM
--- NOTE | 2020-06-02 18:31 | NUR ---
OK TO TALK TO ANY DAUGHTER PER PATIENT. CALLIE REQUEST SOME SORT OF SOCIAL SERVICE EVAL FOR HELP AT HOME.
--- NOTE | 2020-06-02 18:48 | NUR ---
advised daughter, claudia, to have one person call and to have that person call other family members with update. verbalizes understanding.
--- NOTE | 2020-06-02 18:50 | NUR ---
RESTING COMFORTABLY. SLEEPING.
[2020-06-02] MEDS ORDERED: Ropinirole HCl1 MG PO (20:42)
--- NOTE | 2020-06-03 04:44 | NUR ---
SHIFT SUMMARY ADMITTED FOR ACUTE RESPIRATORY FAILURE W/HYPOXIA. DROPLET/CONTACT - COVID+. REMEDESIVIR INFUSED ORDERED. THIS PT WAS ANXIOUS THROUGHOUT SHIFT. SHE STATED SHE TAKES REQUIP AT NIGHT FOR RESTLESS LEGS, I DID GET A ONE TIME DOSE AND I WILL PASS THIS ON TO DAY SHIFT. CLONAZEPAM GIVEN FOR ANXIETY WITH LITTLE NOTICEABLE EFFECT. TELEMETRY: LIZ @ 54 BPM. SHE IS ON 3.5 LPM O2. SHE DENIES BEING DIABETIC.
[2020-06-03 05:12] LABS: BASOPHILS PERCENT AUTO 0 % (0-2); EOSINOPHILS PERCENT AUTO 0 % (0-6); Hematocrit 32.5 % (33.0-51.0); IMMATURE GRAN ABSOLUTE AUTO 0.03 K/mm3 (0.00-0.10); IMMATURE GRAN PERCENT AUTO 1 % (0-1); LYMPHOCYTES PERCENT AUTO 14 % (21-46); MONOCYTES ABSOLUTE AUTO 0.36 K/mm3 (0.16-1.47); MONOCYTES PERCENT AUTO 8 % (4-13); Mean Corpuscular HGB 30.8 pg (26.0-34.0); Mean Corpuscular HGB Conc 33.8 g/dL (31.5-36.5); Mean Corpuscular Volume 91 fL (80-100); Mean Platelet Volume 9.6 fL (9.1-12.4); NEUTROPHILS ABSOLUTE AUTO 3.36 K/mm3 (1.96-9.15); NEUTROPHILS PERCENT AUTO 77 % (41-73); Platelet Count 156 K/mm3 (150-400); RDW Coefficient Variation 13.3 % (11.7-14.2); RDW Standard Deviation 44.5 fL (35.1-46.3); Red Blood Cell Count 3.57 M/mm3 (3.80-5.20); White Blood Cell Count 4.35 K/mm3 (4.00-11.30)
[2020-06-03 05:43] LABS: Alanine Aminotransfer (ALT/SGP 41 U/L (12-78); Albumin, Blood 2.6 g/dL (3.4-5.0); Albumin/Globulin Ratio 0.7 (0.8-1.8); Alk Phos 158 U/L (50-136); Anion Gap 10 mmol/L (6-16); Aspartate Aminotrans (AST/SGOT 39 U/L (12-37); Bilirubin, Total 0.4 mg/dL (0.1-1.0); Blood Urea Nitrogen 18 mg/dL (8-24); Bun/Creatinine Ratio 25.3 (12.0-20.0); CO2, Blood 21 mmol/L (21-32); Calcium, Blood 7.7 mg/dL (8.5-10.1); Chloride, Blood 108 mmol/L (98-108); Creatinine, Blood 0.71 mg/dL (0.40-1.00); Globulin, Blood 3.6 g/dL (2.2-4.0); Glomerular Filtration Rate >60 (60-); Glucose, Blood 85 mg/dL (70-99); Potassium, Blood 3.4 mmol/L (3.5-5.5); Sodium, Blood 139 mmol/L (136-145); Total Protein, Blood 6.2 g/dL (6.4-8.2)
--- NOTE | 2020-06-03 17:25 | NUR ---
PT AO WITH SOME CONFUSION. PT REALLY FOCUSED ON HER ANXIETY AND RESTLESS LEGS. DR COFFEY ADDED MEDICATION TO EMAR TO HELP ADDRESS THIS. THIS ADDITIONAL MEDICATION HELPS, BUT PT ASK FOR IT BEFORE SHE CAN HAVE MORE. PT GETS UP TO BEDSIDE COMMODE AND HAS CALL LIGHT WITHIN REACH. WILL CONTINUE TO MONITOR.
[2020-06-04 03:32] LABS: PCO2 Arterial 25.7 mmHg (35-45); PO2 Arterial 49.1 mmHg (80-100); pH Blood Arterial 7.53 (7.35-7.45)
--- NOTE | 2020-06-04 03:49 | NUR ---
Dr. Jimenez was notified of ABG pO2 of 49.1 which is critical low, pCO2 of 25.7, ABG pH of 7.53 on 15 liters high danika O2. He requested to talk with respiratory therapist. Call transferred.
--- NOTE | 2020-06-04 04:44 | NUR ---
TRANSFER TO U 8 0445 PT TO UNIT FROM [facility] FLOOR. REPORT RECEIIVED FROM BRIDGETT Owusu RN. PT AXO PRESENTLY. ON 15L ON TRANSPORT. PT IMMEDIATELY PLACED ON AIRVO, IONITIALLY 50L 90% FIO2, TITRATED TO 50L 94-95% FIO2, SPO2 NOW >88% WITH PT LYING ON HER SIDE, DESTURATES QUICKLY IF LAYING ON BACK. LUNG SOUNDS PRESENT VEREY DIM. PT DOES NOT PRESENT TACHYPNEIC. TELEMETRY SHOWS SR. VSS WITH TRANSFER. PT ORIENTED TO ROOM. YELLOW GOWN ON. CAMERA ON. PT IN ISOLATION. BED ALARM ON. WILL CONTINUE TO MONITOR UNTIL SHIFT CHANGE.
--- NOTE | 2020-06-04 05:06 | NUR ---
TRANSFER TO PCU PT DESATURATING AT REST. RT CALLED TO ROOM. HOSPITALIST INFORMED. CHARGE INFORMED. DECISION MADE TO TRANSFER PATIENT TO PCU. PCU NURSE DALIA RECEIVED HANDOFF REPORT. FAMILY INFORMED. PT TRANSFERED TO PCU VIA GURNEY WITH PERSONAL POSSESSIONS. PT ON 15 LPM O2 DURING TRANSPORT.
[2020-06-04 05:23] LABS: BASOPHILS PERCENT AUTO 0 % (0-2); EOSINOPHILS PERCENT AUTO 0 % (0-6); Hematocrit 35.2 % (33.0-51.0); Hemoglobin 12.5 g/dL (11.5-16.0); IMMATURE GRAN ABSOLUTE AUTO 0.03 K/mm3 (0.00-0.10); IMMATURE GRAN PERCENT AUTO 0 % (0-1); LYMPHOCYTES ABSOLUTE AUTO 0.62 K/mm3 (0.84-5.20); LYMPHOCYTES PERCENT AUTO 9 % (21-46); MONOCYTES ABSOLUTE AUTO 0.47 K/mm3 (0.16-1.47); MONOCYTES PERCENT AUTO 7 % (4-13); Mean Corpuscular HGB 31.6 pg (26.0-34.0); Mean Corpuscular HGB Conc 35.5 g/dL (31.5-36.5); Mean Corpuscular Volume 89 fL (80-100); Mean Platelet Volume 9.7 fL (9.1-12.4); NEUTROPHILS ABSOLUTE AUTO 5.69 K/mm3 (1.96-9.15); NEUTROPHILS PERCENT AUTO 84 % (41-73); Platelet Count 221 K/mm3 (150-400); RDW Coefficient Variation 13.3 % (11.7-14.2); RDW Standard Deviation 43.3 fL (35.1-46.3); Red Blood Cell Count 3.96 M/mm3 (3.80-5.20); White Blood Cell Count 6.81 K/mm3 (4.00-11.30)
[2020-06-04 05:46] LABS: Alanine Aminotransfer (ALT/SGP 47 U/L (12-78); Albumin, Blood 2.9 g/dL (3.4-5.0); Albumin/Globulin Ratio 0.7 (0.8-1.8); Alk Phos 171 U/L (50-136); Anion Gap 9 mmol/L (6-16); Aspartate Aminotrans (AST/SGOT 52 U/L (12-37); Bilirubin, Total 1.2 mg/dL (0.1-1.0); Blood Urea Nitrogen 17 mg/dL (8-24); Bun/Creatinine Ratio 23.3 (12.0-20.0); CO2, Blood 23 mmol/L (21-32); Calcium, Blood 8.4 mg/dL (8.5-10.1); Chloride, Blood 106 mmol/L (98-108); Creatinine, Blood 0.73 mg/dL (0.40-1.00); Glomerular Filtration Rate >60 (60-); Glucose, Blood 89 mg/dL (70-99); Potassium, Blood 3.5 mmol/L (3.5-5.5); Sodium, Blood 138 mmol/L (136-145); Total Protein, Blood 6.9 g/dL (6.4-8.2)
--- NOTE | 2020-06-04 06:12 | NUR ---
FAMILY CALLIE PT'S DAUGHTER CALLED THIS RN TO VOICE CONCERNS REGARDING CARE PREVIOUS TO TRANSFER. FAMILY VERY WORRIED ABOUT PT AND STATES NOT FEELING LIKE THEY HAVE BEEN LISTENED TO, THAT THEIR CONCERNS HAVE NOT BEEN ADDRESSED, AND THAT THEIR MOTHER IS NOT BEING CARED FOR. DISCUSSED PT'S INCREASED ANXIETY, PT'S FALL/SLIDING OOB ON MEDICAL FLOOR, PT'S INCREASE IN O2 NEEDS, HER TRANSFER TO PCU, THAT SHE IS ON CAMERA FOR SAFETY, EXPLAINED WHY 4 BEDRAILS CANNOT BE ALL UP AT ONE TIME DUE TO RESTRAINT LAWS, PT'S NEURO STATUS AND DETERMINING WHAT IS BASELINE VS ACUTE CONFUSION, WELL PCU STANDARDS IN ROUNDING ON PT'S. CALLIE INFORMED THAT THE PT ADVOCATE CAN BE CALLED TO ADDRESS CONCERNS WELL KITCHEN AND BATH DESIGNER. STATES THAT SHE WILL BE CALLING EVERY 4 HOURS TO CHECK ON PT. MADE AWARE THAT THOUGH STAFF WANT TO BE INFORMATIVE AND GIVING WITH INFORMATION POSSIBLE WITH FAMILY, EVERY 4 HOURS WOULD NOT BE POSSIBLE DUE TO NEEDING TO CARE FOR PT'S IN ROOM. DAUGHTER VOICES HER UNDERSTANDING AND STATES THAT THE FAMILY IS NORMALLY VERY UNDERSTANDING BUT IS HAVING A DIFFICULT TIME WITH ALL OF THIS. DAUGHTERS CONCERNS ADDRESSED TO THE BEST OF THIS RN'S ABILITY.
--- NOTE | 2020-06-04 07:31 | NUR ---
PROVIDER DR VELASQUEZ UPDATED ON PT CONDITION. ORDERS FOR STAT CXR GIVEN WELL EXTRA LABS (D DIMER, ETC). DR TO ROOM TO ASSESS PT. SEE ORDERS. DR VELASQUEZ OFF SHIFT BY TIME CXR COMPLETE. DR ARON BARRETT CALLED REGARDING COMPLETION OF PT'S CXR AND DR GIVEN UPDATE ON PT MCONDITION. DR TO COME SEE PT ONCE IN HOSPITAL.
--- NOTE | 2020-06-04 07:34 | NUR ---
FAMILY CONTACT CALLIE - DAUGHTER (PERMISSION VIA PT TO TALK) [phone]
--- NOTE | 2020-06-04 12:15 | NUR ---
PT STATES DAUGHTER YAW WOULD BE HER DECISION MAKER IF PT IS UNABLE TO MAKE DECISIONS FOR HERSELF.
--- NOTE | 2020-06-04 16:03 | NUR ---
CARE COORDINATION REFERRAL - ADMIT: 06/02/20 DISCHARGE: DX: ACUTE RESPIRTORY FAILURE WITH HYPOSIA CC: ADMIT: 05/29/20 DISCHARGE: 06/01/20 DX:ACUTE RENAL FAILURE CC: CPEABODY ELVIRA CALL: PT AT HOME RESIDENCE: HOME CAREGIVER: TERESSA SOUZA, FAMILY MEMBER, KILEY MCCALL, SPOUSE / PARTNER, DX: CKD-STAGE 4, DM, RECTAL CANCER, SEE LIST DME: NONE CCM: NONE HOME HEALTH: NONE SUMMARY: 06/04/20- PER CHART REVIEW, PT HAS WORSENED OVER NIGHT WITH COVID. HER RESPIRATORY STATUS HAS DECLINED AND SHE HAS BEEN PLACED ON AIRVO AND MOVED DOWN TO PCU UNIT FROM THE MEDICAL FLOOR. -ALAN
--- NOTE | 2020-06-04 18:27 | NUR ---
SHIFT SUMMARY; ASSUMED CARE AT 0700, REPORT FROM BRODIE GÓMEZ. AIRVO AT 95% AND 50L WHEN ASSUMING CARE. A/A/OX4 WITH INTERMITANT SLOW TO RESPOND. ENCOURAGED PRONING THROUGHOUT SHIFT. PT MAINTAINED EITHER SIDE LYING OR PRONE POSITION ALL OF SHIFT. FI02 DECREASED TO 70% REMAINS AT 50L. BED BATH COMPLETE TODAY. Q2 REPOSITIONING THROUGHOUT SHIFT. SAT IN CHAIR IN EVENING FOR DINNER. ATTENDS IN PLACE FOR URGENCY. PALLATIVE CARE AND PT/OT TO MEET WITH PT TOMORROW. VSS, 02 SATS 92-97%. WILL CONTINUE TO MONITOR AND TREAT UNTIL CHANGE OF SHIFT.
[2020-06-05 04:19] LABS: BASOPHILS ABSOLUTE AUTO 0.01 K/mm3 (0.00-0.23); BASOPHILS PERCENT AUTO 0 % (0-2); EOSINOPHILS ABSOLUTE AUTO 0.03 K/mm3 (0.00-0.68); EOSINOPHILS PERCENT AUTO 1 % (0-6); Hematocrit 33.9 % (33.0-51.0); Hemoglobin 11.8 g/dL (11.5-16.0); IMMATURE GRAN ABSOLUTE AUTO 0.05 K/mm3 (0.00-0.10); IMMATURE GRAN PERCENT AUTO 1 % (0-1); LYMPHOCYTES PERCENT AUTO 14 % (21-46); MONOCYTES ABSOLUTE AUTO 0.34 K/mm3 (0.16-1.47); MONOCYTES PERCENT AUTO 6 % (4-13); Mean Corpuscular HGB 31.2 pg (26.0-34.0); Mean Corpuscular HGB Conc 34.8 g/dL (31.5-36.5); Mean Corpuscular Volume 90 fL (80-100); Mean Platelet Volume 9.5 fL (9.1-12.4); NEUTROPHILS ABSOLUTE AUTO 4.44 K/mm3 (1.96-9.15); NEUTROPHILS PERCENT AUTO 78 % (41-73); Platelet Count 216 K/mm3 (150-400); RDW Coefficient Variation 13.4 % (11.7-14.2); RDW Standard Deviation 44.6 fL (35.1-46.3); Red Blood Cell Count 3.78 M/mm3 (3.80-5.20); White Blood Cell Count 5.67 K/mm3 (4.00-11.30)
[2020-06-05 04:43] LABS: Alanine Aminotransfer (ALT/SGP 47 U/L (12-78); Albumin, Blood 2.8 g/dL (3.4-5.0); Albumin/Globulin Ratio 0.7 (0.8-1.8); Alk Phos 153 U/L (50-136); Anion Gap 8 mmol/L (6-16); Aspartate Aminotrans (AST/SGOT 44 U/L (12-37); Bilirubin, Total 0.5 mg/dL (0.1-1.0); Blood Urea Nitrogen 26 mg/dL (8-24); Bun/Creatinine Ratio 33.9 (12.0-20.0); CO2, Blood 25 mmol/L (21-32); Calcium, Blood 8.1 mg/dL (8.5-10.1); Chloride, Blood 105 mmol/L (98-108); Creatinine, Blood 0.77 mg/dL (0.40-1.00); Globulin, Blood 3.9 g/dL (2.2-4.0); Glomerular Filtration Rate >60 (60-); Glucose, Blood 82 mg/dL (70-99); Potassium, Blood 3.6 mmol/L (3.5-5.5); Sodium, Blood 138 mmol/L (136-145); Total Protein, Blood 6.7 g/dL (6.4-8.2)
--- NOTE | 2020-06-05 05:12 | NUR ---
SHIFT SUMMARY NO ACUTE CHANGES THIS SHIFT. PT REMAINS AXO BUT SOMEWHAT LETHARGIC. HAD ANXIETY ATTACK THIS SHIFT THAT CAUSED DESATURATION INTO HIGH 70'S, ORDERS FOR IV ATIVAN RECEIVED AND ADMINISTERED TO GOOD EFFECT. PT HAS SINCE REMAINED >90% SPO2 UNLESS PT ACCIDENTALLY PULLS OFF AIRVO WHILE ASLEEP. AIRVO SETTINGS 50L / 70% FIO2. LUNGS CLEAR/DIM. PT ROTATING TO EACHSIDE WHILE SLEEPING, HASN'T FULLY PRONED THIS SHIFT. RESTLESS LEG MEDICATION ADMINISTERED PER REQUEST. PT COOPERATIVE WITH CARE. CAMERAS REMAIN ON FOR SAFETY THOUGH PT HAS NOT SHOWN TO HAVE BEEN IMPULSIVE. BED ALARM ON. REMAINS IN ISOLATION FOR COVID. OTHERWISE, PT STATES WANTING TO SLEEP MUCH POSSIBLE, STAFF ATTEMPTING TO LET PT SLEEP AND TO BUNCH CARE IN ORDER TO ALLOW FOR THIS. WILL CONTINUE TO MONITOR UNTIL SHIFT CHANGE.
--- NOTE | 2020-06-05 06:39 | NUR ---
FAMILY DR LEDESMA UPDATED ON PT STATUS. DISCUSSED COVID EFFECTS ON LUNGS, PROGRESSION OVER THE NIGHT INCLUDING PT STAYING AT 50L / 70% FIO2. PT'S MORE CONCRETE MENTATION. ANXIETY. WELL WHAT TO EXPECT WITH COVID PROGRESSION. CALLIE STATES BEING THANKFUL FOR CARE BEING GIVEN IN PCU AND FOR THE UPDATES BEING GIVEN BY STAFF.
--- NOTE | 2020-06-05 11:27 | NUR ---
BUSPAR TO START NOW RECEIVED T.O. TO START BUSPAR NOW AND KEEP LATER DOSE FROM DR. CHAND. EMAR UPDATED
--- NOTE | 2020-06-05 12:23 | NUR ---
Case Conference Note Spoke with Bedside RN Pastora and discussed case. Discussed option for Pt and family to do face time or zoom. Pastora reports this option was presented to Pt today but denied need at this time. Pastora reports oxygen requirements are still high but mentation has improved. Supportive call to Pt's daughter Shawnee. Provided update and answered questions. Discussed option for zoom or facetime when Pt is ready. Shawnee expresses appreciation of call. Palliative Care will remain available.
--- NOTE | 2020-06-05 12:56 | NUR ---
06/05/20- per chart review with Dr. Dejesus, pt is still on Airvo and no plan for d/c at this time. -ulices
--- NOTE | 2020-06-05 14:27 | NUR ---
FAMILY UPDATE Called and updated Verna (daughter) RE patient's status and mentation. Also let Verna know patient decline to Zoom with family at this time. Verna requested to have her (Verna) as point of contact so that her other siblings and patient's spouse (Derek) can be updated appropriately. Verna will inform siblings of decision.
--- NOTE | 2020-06-05 18:23 | NUR ---
Shift Summary A/O, pleasant and cooperative. C/O abdominal pain requesting lidocaine patch be placed on RUQ. Medicated for abd pain x 2, restless leg x 1, and anxiety per scheduled med in EMAR. Continent using bedpan and bsc as tolerated. Cooperative with proning and side lying positions. 1P min assist with needs. PT/OT eval completed today. Airvo @ 50L 70%. Slightly dyspneic with exertion, rebounds quickly with Airvo. No acute concerns, WCTM.
[2020-06-06 04:13] LABS: BASOPHILS ABSOLUTE AUTO 0.01 K/mm3 (0.00-0.23); BASOPHILS PERCENT AUTO 0 % (0-2); EOSINOPHILS ABSOLUTE AUTO 0.03 K/mm3 (0.00-0.68); EOSINOPHILS PERCENT AUTO 0 % (0-6); Hematocrit 37.8 % (33.0-51.0); Hemoglobin 12.9 g/dL (11.5-16.0); IMMATURE GRAN ABSOLUTE AUTO 0.05 K/mm3 (0.00-0.10); IMMATURE GRAN PERCENT AUTO 1 % (0-1); LYMPHOCYTES ABSOLUTE AUTO 0.68 K/mm3 (0.84-5.20); LYMPHOCYTES PERCENT AUTO 7 % (21-46); MONOCYTES PERCENT AUTO 4 % (4-13); Mean Corpuscular HGB 30.9 pg (26.0-34.0); Mean Corpuscular HGB Conc 34.1 g/dL (31.5-36.5); Mean Corpuscular Volume 90 fL (80-100); Mean Platelet Volume 9.2 fL (9.1-12.4); NEUTROPHILS ABSOLUTE AUTO 8.61 K/mm3 (1.96-9.15); NEUTROPHILS PERCENT AUTO 88 % (41-73); Platelet Count 257 K/mm3 (150-400); RDW Coefficient Variation 13.2 % (11.7-14.2); RDW Standard Deviation 44.1 fL (35.1-46.3); Red Blood Cell Count 4.18 M/mm3 (3.80-5.20); White Blood Cell Count 9.78 K/mm3 (4.00-11.30)
[2020-06-06 04:35] LABS: Alanine Aminotransfer (ALT/SGP 46 U/L (12-78); Albumin, Blood 2.9 g/dL (3.4-5.0); Albumin/Globulin Ratio 0.7 (0.8-1.8); Alk Phos 163 U/L (50-136); Anion Gap 8 mmol/L (6-16); Aspartate Aminotrans (AST/SGOT 36 U/L (12-37); Bilirubin, Total 0.7 mg/dL (0.1-1.0); Blood Urea Nitrogen 26 mg/dL (8-24); Bun/Creatinine Ratio 35.2 (12.0-20.0); CO2, Blood 27 mmol/L (21-32); Calcium, Blood 8.4 mg/dL (8.5-10.1); Chloride, Blood 102 mmol/L (98-108); Creatinine, Blood 0.74 mg/dL (0.40-1.00); Globulin, Blood 4.3 g/dL (2.2-4.0); Glomerular Filtration Rate >60 (60-); Glucose, Blood 107 mg/dL (70-99); Magnesium, Blood 2.2 mg/dL (1.6-2.4); Potassium, Blood 3.4 mmol/L (3.5-5.5); Sodium, Blood 137 mmol/L (136-145); Total Protein, Blood 7.2 g/dL (6.4-8.2)
--- NOTE | 2020-06-06 06:37 | NUR ---
SHIFT SUMMARY NO ACUTE CHANGES THIS SHIFT. PT ALERT, ORIENTED X3. SP02>90% ON 50L AIRVO, 50% FI02. TELEMETRY READS SR, HR 60'S. PT C/O OF RESTLESS LEGS THIS SHIFT. MEDICATD PER EMAR. PT C/O OF ANXIETY AT THE END OF SHIFT, MEDICATED PER EMAR. PT UP TO BSC W/ 1 PERSON ASSIST WITH NO PROBLEMS. MEDICATIONS INFUSED PER EMAR. PT C/O SHE WAS UNABLE TO SLEEP MOST OF NIGHT. CALL LIGHT IN REACH. WILL GIVE REPORT TO ONCOMING NURSE.
--- NOTE | 2020-06-06 08:22 | NUR ---
Pt appears to be sleeping when I enter. She is lying on her left side, wearing AirVo at 50 l/min, 57% fio2 , RR 24/min, regular without apparent distress, and spo2 90-93% while resting. When she was awakened, turned on her back for vital signs and assessment, she c/o being very cold, having not slept well at all last night. Spo2 quickly drops to 80% while in the supine position, even when pt was boosted up in bed and HOB elevated to 30 degrees. Encouraged to take deep breaths and cough, which she only did very weakly, with shallow breathing. AFter being assisted to turn to the other side and HOB lowered to a level which she said was comfortable, her spo2 quickly recovered to the 90-93% level without any increase in oxygen delivery. She did not appear to have any dyspnea during the hypoxic episode, and lung sounds are noted clear, albeit diminished auscultated posteriorly. Skin is dry, and warm.
--- NOTE | 2020-06-06 08:40 | NUR ---
The pt says she is very tired, because the pulse oximetry kept beeping all night long and waking her up. She appears to be quite sleepy. Limited conversation, but alert and oriented, answering questions appropriately. She states initially that she is having "anxiety" when asked if she is in pain. She clarifies that it is "anxiety pain", but appears to easily fall asleep afterwards. I asked her to show me exactly where she is having pain, and she says that her pain is on her right side. Lidocaine patches applied. She is resting again with eyes closed, following oral care and assist to reposition on her right side.
--- NOTE | 2020-06-06 13:02 | NUR ---
Tolerated activity of getting up to BSC with minimal assistance.
--- NOTE | 2020-06-07 04:43 | NUR ---
SHIFT SUMMARY PATIENT IS ALERT AND ORIENTED. PATIENT BECAME ANXIOUS, MEDICATED PER EMAR. PATIENT ON AIRVO @50L 60%FIO2, SATS 88-93%. PATIENT 02 SATS BETTER WHEN LAYING ON LEFT SIDE. PATIENT IS ONE PERSON ASSIT WITH BSC. MEDICATED FOR RESTLESS LEGS. PATIENT SLEPT THROUGH MOST THE NIGHT. VSS, NO ACUTE CHANGES. PATIENT ON CAMERA. CALL LIGHT IN REACH.
--- NOTE | 2020-06-07 05:09 | NUR ---
TRANSFER ORDER PER NOTE ON 06/04/20, PT WAS TX'D TO PCU-08 FROM MEDICAL FLOOR AND ORDER WAS OBTAINED FROM DR. VELASQUEZ. NO TRANSFER ORDER ENTERED INTO [facility] BUT PT CONTINUES TO MEET PCU STATUS CRITERIA FOR OXYGEN NEEDS ON AIRVO. ENTERED TRANSFER ORDER AT THIS TIME TO CORRECT THE CHART BUT UABLE TO BACKDATE THE ORDER. PRIMARY RN NICK NOTIFIED.
[2020-06-07 10:40] LABS: Calcium, Blood 8.4 mg/dL (8.5-10.1); Creatinine, Blood 1.03 mg/dL (0.40-1.00); Potassium, Blood 4.6 mmol/L (3.5-5.5)
--- NOTE | 2020-06-07 11:12 | NUR ---
MORNING UPDATE PT WAS WORKING WITH RT DURING MORNING REPORT HER AIRVO HAD BECOME DISCONNECTED. PT WAS UP TO THE CHAIR FOR BREAKFAST BUT CONTINUED TO ASK TO RETURN TO BED. RN AUBREE WAS ABLE TO STAY WITH THE PT IN THE ROOM FOR ABOUT 20 MINUTES AND KEEP THE PT IN THE CHAIR FOR MEDICATIONS AND HER ASSESSMENT. PT THEN RETURNED TO BED, SHE WAS PROPPED UP ON HER SIDE TO HELP MAINTAIN SATURATION AND HOB WAS ELEVATED. PT THEN SLEPT UNTIL DR. PENNY WAS ROUNDING. WHILE DR. PENNY WAS WITH THE PT SHE STATED SHE NEEDED TO USE THE BSC AND SHE BECAME VERY WEAK WHILE HE WAS TRANSFERRING HER; HE WAS ABLE TO MOVE HER TO THE BSC BUT SHE WAS VERY CLOSE TO FALLING. PT HAD AN INCONTINENCE EPISODE DURING THIS TIME; PT WAS CLEANED UP, LINEN WAS CHANGED AND SHE WAS RETURNED TO BED. PT IN BED RESTING AT THIS TIME, ON AIRVO AT 50L 60%.
--- NOTE | 2020-06-07 13:04 | NUR ---
The pt has four daughters listed on the release of information contract which she signed on admission. Enma called this morning and was given an update. She was to be the main point of contact and then to pass along all information to other family members. Call from daughter Shawnee this morning who expressed her anger at the fact that she is listed as next of kin and so she should be the main point of contact. Both daughters were appraised of the hospital request that we only have one family member who calls to get updates as the excessive phone calls is difficult for staff to handle and takes away from patient care. Both Shawnee and Enma verbalized understanding. Since there was disagreement between family members over who the point of contact would be, the pt was asked whom she would like. She stated that Shakila was the one to be the one to receive information and then let the rest of the family know. I spoke with Shakila on the phone [phone], established a code word, "BLUE" for future conversations, and explained to her the pt's expressed wishes. I requested that Shakila also let other family members know that she was going to be the main contact for the hospital, which she agreed to do.
--- NOTE | 2020-06-07 13:34 | NUR ---
Admitting office was called and updated with pt demographics information as Shakila listed as next of kin.
--- NOTE | 2020-06-07 17:58 | NUR ---
SHIFT SUMMARY PT HAS BEEN VERY LETHARGIC THROUGHOUT THE DAY AND IS RESISTANT TO MOVING AROUND THE ROOM. PT WAS ABLE TO SIT IN THE CHAIR THIS MORNING FOR ABOUT 20 MINUTES BUT THEN REQUESTED TO LAY BACK DOWN. PT HAS BETTER SATURATION WHEN LAYING ON HER SIDE AND IS ENCOURAGED TO DO SO. PT WAS ABLE TO WORK ON RELAXATION TECHNIQUES WITH PT TODAY. PT REMAINS ON AIRVO AT 50L AND 60%. PT HAS NS RUNNING AT 125ML. PT HAS SOME INTERMITTEN MOMENTS WHERE SHE SEEMS TO DISENGAGE IN CONVERSATION "SPACE OUT" PT SAT AT THE EDGE OF THE BED TO MAINTAIN SATURATION WHILE CONSUMING DINNER. PT IS NOW WORKING WITH THE CRIME ANALYST TO GET SETTLED BACK INTO BED
--- NOTE | 2020-06-08 04:36 | NUR ---
SHIFT SUMMARY PATIENT IS ALERT AND ORIENTED X4. PATIENT MORE TALKATIVE AT BEGINNING OF SHIFT. DID NOT GET ANXIOUS TILL LATER IN THE NIGHT COMPARED TO PREVIOUS NIGHT. 02 SATS >90% ON 50L 60% FI02. PATIENT STATED SHE WAS GETTING HER APPETITE BACK. SLEPT MOST THE NIGHT REPOSITIONS SELF IN BED AND 02 SATS BETTER ON HER SIDE. 1 PERSON ASSIST TO BEDSIDE COMMODE. SB 45-50s MOST THE NIGHT. VSS, NO ACUTE CHANGES. CALL LIGHT IN REACH, ON CAMERA, AND BED ALARM ON.
[2020-06-08 05:17] LABS: Anion Gap 8 mmol/L (6-16); Blood Urea Nitrogen 31 mg/dL (8-24); Bun/Creatinine Ratio 41.5 (12.0-20.0); CO2, Blood 24 mmol/L (21-32); Calcium, Blood 8.1 mg/dL (8.5-10.1); Chloride, Blood 109 mmol/L (98-108); Creatinine, Blood 0.75 mg/dL (0.40-1.00); Glomerular Filtration Rate >60 (60-); Glucose, Blood 134 mg/dL (70-99); Potassium, Blood 3.6 mmol/L (3.5-5.5); Sodium, Blood 141 mmol/L (136-145)
--- NOTE | 2020-06-08 09:39 | NUR ---
MORNING UPDATE PT IS MORE INTERACTIVE TODAY THAN YESTERDAY, VS STABLE WITH THE EXCEPTION OF OXYGENATION, PT STILL ON AIRVO 50L AND 60%. PT WAS ABLE TO SIT AT THE SIDE OF THE BED FOR BREAKFAST. PT NEEDS ENCOURAGEMENT TO MOVE AND COMPLETE ACTIVITY TOLERATED. PT AGREED TO WORK WITH PHYSICAL THERAPY AND USE A CHAIR TODAY. PT HAS SOME ANXIETY BUT AGREES TO FOCUS ON ACTIVITY TODAY AND WAS REMINDED THAT PHYSICAL ACTIVITY TOLERATED WILL BENEFIT HER MENTAL STATE WELL, PT AGREED AND GAVE VERBAL UNDERSTANDING. PT IS IN WITH DR. PENNY AT THIS TIME
--- NOTE | 2020-06-08 19:22 | NUR ---
SHIFT SUMMARY PT HAS BEEN MORE ACTIVE TODAY. PT WORKED WITH PHYSICAL THERAPY TODAY AND WAS ABLE TO SIT UP IN THE CHAIR FOR ABOUT AN HOUR WHICH GREATLY INCREASED HER OXYGENATION, SATURATION MAINTAINED AT 96% FOR THE MAJORITY OF THE EVENING. PT HAS BEEN ENCOURAGED TO DANGLE AT THE BEDSIDE FOR MEALS. PT REMAINS ON AIRVO AT 60% BUT VS ARE OTHERWISE STABLE. PT IS RESTING IN HER ROOM AT THIS TIME
--- NOTE | 2020-06-09 04:34 | NUR ---
ACCOUNTANT TAX SUMMARY PT REPORTED SEVERE ANXIETY AT THE START OF THE SHIFT AND WAS GIVEN SCHEDULED BUSPAR W NO RELEIF. ONE HR LATER THE PT WAS GIVEN THE 2MG OF KLONOPIN WHICH BROUGHT HER MUCH RELEIF. PT HAD SCD'S PLACED ON HER CALFS IN AN ATTEMPT TO REDUCE THE RESTLESS LEG SYNDROME SHE WAS EXPERIENCING AND THE PT REPORTED THAT THEY HELP ALOT AND ACTUALLY FELT GOOD. PTS O2 SATS HAVE REMAINED >92% ON 45L O2. PT HAS SLEPT FOR THE MAJORITY OF THE SHIFT GETTING UP A FEW TIMES TO USE THE BSC.TELE- SINUS LIZ 55-59 BPM. NEURO REMAINS UNCHANGED. WCTM.
[2020-06-09 06:00] LABS: Anion Gap 9 mmol/L (6-16); Blood Urea Nitrogen 22 mg/dL (8-24); Bun/Creatinine Ratio 31.2 (12.0-20.0); CO2, Blood 27 mmol/L (21-32); Calcium, Blood 8.7 mg/dL (8.5-10.1); Chloride, Blood 108 mmol/L (98-108); Creatinine, Blood 0.71 mg/dL (0.40-1.00); Glomerular Filtration Rate >60 (60-); Glucose, Blood 109 mg/dL (70-99); Potassium, Blood 3.4 mmol/L (3.5-5.5); Sodium, Blood 144 mmol/L (136-145)
--- NOTE | 2020-06-09 19:30 | NUR ---
SUMMARY PT HAS DONE WELL TODAY. SHE HAS BEEN TRANSITIONED FROM THE AIRVO TO HIGHFLO NC @ 5L, RESP REMAIN UNLABORED, LUNG SOUNDS CLEAR, DIM IN BASES BILATERAL, SPO2 FLUCTUATES BETWEEN 90-94%. PT WORKED WITH PT/OT & SAT IN THE RECLYNER X2. PT WILL SIT AT THE BEDSIDE & REPOSITION HERSELF IN BED FREQUENTLY, PRONING ENC. PT IS TOLERATING PO INTAKE, VOIDING WNL. NO OTHER ACUTE CHANGES NOTED.
--- NOTE | 2020-06-09 22:22 | NUR ---
FAMILY CALL PT DAUGHTER, YAW, CALLED FOR UPDATE ON PT. SPOKE WITH YAW ABOUT PT RECENT VITAL SIGNS, WHAT SHE ATE THIS EVENING, PT SITTING ON SIDE OF BED. PT'S DAUGHTER WAS ENCOURGAED BY PT'S PROGRESS.
[2020-06-10 04:35] LABS: Anion Gap 7 mmol/L (6-16); Blood Urea Nitrogen 6 mg/dL (8-24); Bun/Creatinine Ratio 8.3 (12.0-20.0); CO2, Blood 27 mmol/L (21-32); Calcium, Blood 8.7 mg/dL (8.5-10.1); Chloride, Blood 107 mmol/L (98-108); Creatinine, Blood 0.72 mg/dL (0.40-1.00); Glomerular Filtration Rate >60 (60-); Glucose, Blood 151 mg/dL (70-99); Potassium, Blood 3.6 mmol/L (3.5-5.5); Sodium, Blood 141 mmol/L (136-145)
--- NOTE | 2020-06-10 06:00 | NUR ---
SHIFT SUMMARY PT ALERT, ORIENTED X3. PT C/O OF ANXIETY AT BEGINNING OF SHIFT. MEDICATED PER EMAR WITH RELIEF. PT STARTED OUT SHIFT SP02>90% ON 5L HIFLO NC. DURING SHIFT PT DESATTED WHILE SLEEPING, ENDED UP NEEDING 10L [place] NC TO MAINTAIN SP02>90%. TELEMETRY READS SR. HR AVG 80'S, BUT DID DIP TO HIGH 30'S WHILE SLEEPING. PT WORE SCD'S TO HELP RESTLESS LEGS THIS SHIFT. [place] [facility] [place] WITH NO PROBLEMS. CALL LIGHT IN REACH. WILL GIVE REPORT TO ONCOMING NURSE.
--- NOTE | 2020-06-10 07:15 | NUR ---
ASSUMED CARE: PT RESTING IN BED, DR SHARP AT BEDSIDE. PT CURRENTLY ON 6L O2. NSR ON TELE. NO ACUTE NEEDS AT THIS TIME.
--- NOTE | 2020-06-10 17:45 | NUR ---
SHIFT SUMMARY: PT HAS BEEN DANGLING AT BEDSIDE AND WORKED WITH PHYSICAL THERAPY THIS SHIFT. GOT UP INTO CHAIR FOR DINNER AND HAS BEEN TITRATED DOWN TO 4L VIA NC. DAUGHTER YAW HAS BEEN GIVEN AN UPDATE THIS SHIFT. NO ACUTE NEEDS OR CONCERNS AT THIS TIME.
--- NOTE | 2020-06-11 05:43 | NUR ---
SHIFT SUMMARY NO ACUTE CHANGES THIS SHIFT. PT A&OX3. SLOW TO REPOND. ANXIOUS, MEDICATED PER EMAR. PT C/O OF RESTLESS LEGS THIS SHIFT, MEDICATED PER EMAR. SP02>90% ON 4L HUMIDIFIED NC. TELEMETRY READ SR, HR 40'S-70'S. PT C/O OF NOT SLEEPING WELL DURING NIGHT, DEPSITE MULTIPLE WARM BLANKETS, MUSIC DISTRACTION PROVIDED. CALL LIGHTIN REACH. WILL GIVE REPORT TO ONCOMING NURSE.
--- NOTE | 2020-06-11 10:30 | NUR ---
MORNING UPDATE PT HAS SUSTAINED O2 WELL ON 2-4L NC. PT IS VERY TIRED TODAY BUT AGREED TO GET UP TO THE CHAIR THIS AFTERNOON WITH PHYSICAL THERAPY AND FOR LUNCH. VS STABLE, PT TOOK MORNING MEDICATIONS AND IS NOW RESTING IN HER ROOM
--- NOTE | 2020-06-11 15:03 | NUR ---
06/11/20- per chart review, pt is participating in both OT and PT services. Both services are recommending that the pt go to SNF and have FWW. Her need for O2 has decreased. Pt would need to go to [facility] until, Dr. Rossi is agreeable with this plan. Contacted [facility], they will start the review process to get into the COVID unit at [facility]. THis process can take 3-5 days. Attempted to call daughter, Shakila, , to update family on plan. LMOM. -kjw
--- NOTE | 2020-06-11 15:15 | NUR ---
RECEIVED PT FROM PCU, ALERT AND ORIENTED X4, NO COMPLAINTS OF CHEST PAIN OR SOB. NO COMPLAINTS OF PAIN. HOWEVER, DOES C/O RLS AND WILL BE TREATED PER EMAR. STAFF WILL CONT. TO MONITOR.
--- NOTE | 2020-06-11 15:18 | NUR ---
TRANSFER TO MEDICAL FLOOR PT TRANSFERRED TO MEDICAL FLOOR AT APPROXIMATELY 1500. PT LEFT THE FLOOR VIA WHEELCHAIR WITH ALL PERSONAL BELONGINGS, CELL PHONE AND OPERATIVE SUPERVISOR INCLUDED. PT WAS ESCORTED BY MASTER MECHANIC AND BRODIE MAK. VS STABLE, PT ON 4L VIA NC FOR O2. REPORT GIVEN TO BRODIE CORONEL ON MEDICAL FLOOR.
--- NOTE | 2020-06-11 18:29 | NUR ---
PT RESTING IN BED AFTER PM MEDICATION ADMIN AND DINNER. PT IV LINE IS WNL AND SL, ALERT AND ORIENTED X4, SLOW TO RESPOND, MAKES NO COMPLAINTS OF SOB AT THIS TIME. BED IN LOW POSITION AND CALL LIGHT WITHIN REACH. STAFF WILL CONT. TO MONITOR.
--- NOTE | 2020-06-11 19:00 | NUR ---
ASSUMED CARE RECEIVED REPORT FROM BRODIE YU. PT RESTING, IN NO ACUTE DISTRESS. NO ACUTE NEEDS ASSESSED AT THIS TIME. CALL LIGHT, POSSESSIONS IN REACH, BED IN LOW POSITION. CONTINUE TO MONITOR.
--- NOTE | 2020-06-11 22:35 | NUR ---
UPDATE GIVEN TO PT'S DAUGHTER, YAW. REMINDED OF HOSPITAL POLICY REGARDING VISITORS. UPDATED ON MOTHER'S CURRENT CONDITION. ALLOWED FOR QUESTIONS AND EXPRESSION OF CONCERNS. CONTINUE TO MONITOR.
[2020-06-12 05:27] LABS: BASOPHILS ABSOLUTE AUTO 0.01 K/mm3 (0.00-0.23); BASOPHILS PERCENT AUTO 0 % (0-2); EOSINOPHILS ABSOLUTE AUTO 0.03 K/mm3 (0.00-0.68); EOSINOPHILS PERCENT AUTO 0 % (0-6); Hematocrit 33.6 % (33.0-51.0); Hemoglobin 11.5 g/dL (11.5-16.0); IMMATURE GRAN ABSOLUTE AUTO 0.06 K/mm3 (0.00-0.10); IMMATURE GRAN PERCENT AUTO 1 % (0-1); LYMPHOCYTES ABSOLUTE AUTO 1.22 K/mm3 (0.84-5.20); LYMPHOCYTES PERCENT AUTO 17 % (21-46); MONOCYTES ABSOLUTE AUTO 0.49 K/mm3 (0.16-1.47); MONOCYTES PERCENT AUTO 7 % (4-13); Mean Corpuscular HGB 31.3 pg (26.0-34.0); Mean Corpuscular HGB Conc 34.2 g/dL (31.5-36.5); Mean Corpuscular Volume 91 fL (80-100); Mean Platelet Volume 9.4 fL (9.1-12.4); NEUTROPHILS ABSOLUTE AUTO 5.54 K/mm3 (1.96-9.15); NEUTROPHILS PERCENT AUTO 75 % (41-73); Platelet Count 254 K/mm3 (150-400); RDW Coefficient Variation 12.9 % (11.7-14.2); RDW Standard Deviation 42.6 fL (35.1-46.3); Red Blood Cell Count 3.68 M/mm3 (3.80-5.20); White Blood Cell Count 7.35 K/mm3 (4.00-11.30)
[2020-06-12 05:57] LABS: Anion Gap 10 mmol/L (6-16); Blood Urea Nitrogen 29 mg/dL (8-24); Bun/Creatinine Ratio 38.5 (12.0-20.0); CO2, Blood 26 mmol/L (21-32); Calcium, Blood 8.7 mg/dL (8.5-10.1); Chloride, Blood 104 mmol/L (98-108); Creatinine, Blood 0.75 mg/dL (0.40-1.00); Glomerular Filtration Rate >60 (60-); Glucose, Blood 234 mg/dL (70-99); Potassium, Blood 3.4 mmol/L (3.5-5.5); Sodium, Blood 140 mmol/L (136-145)
--- NOTE | 2020-06-12 06:44 | NUR ---
PATIENT OBSERVATION ASSISTANT SUMMARY PT RESTING COMFORTABLY, IN NO ACUTE DISTRESS. VS REVIEWED, WNL. NO ACUTE CHANGES IN CONDITION NOTED. O2 SATS REMAIN STABLE ON 4L/NC. NO C/O SOB, DYSPNEA. SLEPT ON AND OFF THROUGHOUT NIGHT. MEDICATED FOR C/O RESTLESS LEGS. NO ACUTE NEEDS ASSESSED AT THIS TIME. CALL LIGHT, POSSESSIONS IN REACH, BED IN LOW POSITION. CONTINUE TO MONITOR, REPORT OFF TO DAY RN.
--- NOTE | 2020-06-12 18:18 | NUR ---
SHIFT SUMMARY. A&OX3, PLEASANT AND COOPERATIVE WITH CARE, FLAT AFFECT, CALLS APPROPRIATELY FOR ASSISTANCE. PT REPORTED PAIN TO R UPPER BACK, PAIN DECREASED AFTER LIDOCAINE PATCHES. PT DENIES N/V, SOB. GOOD MEAL INTAKE. DAUGHTER YAW CALLED AND WAS UPDATED ON PLAN OF CARE. PT CONTINUES WITH 4L O2 NC. NO NEW CHANGES OR CONCERNS.
--- NOTE | 2020-06-12 22:45 | NUR ---
06/12/[address] PROCEDURE VIA [facility]. PT SLIGHTLY DISORIENTED TO SURROUNDINGS. RN REMINDED HER OF SURROUNDINGS AND PROCEDURE DONE. [place] COMPRESSION DRAIN FROM RT LOWER BACK INTACT WITH RED DRAINAGE. REMIDED PT NOT TO TOUCH DRAIN, IV OR ANY ITEMS. BED ALARM ON. POST-OP VITALS STARTED AND SEE GRAPHIC SECTION.
[2020-06-13 06:00] LABS: Anion Gap 7 mmol/L (6-16); Blood Urea Nitrogen 32 mg/dL (8-24); Bun/Creatinine Ratio 33.4 (12.0-20.0); CO2, Blood 28 mmol/L (21-32); Calcium, Blood 8.8 mg/dL (8.5-10.1); Chloride, Blood 106 mmol/L (98-108); Creatinine, Blood 0.96 mg/dL (0.40-1.00); Glomerular Filtration Rate >60 (60-); Glucose, Blood 115 mg/dL (70-99); Potassium, Blood 3.9 mmol/L (3.5-5.5); Sodium, Blood 141 mmol/L (136-145)
--- NOTE | 2020-06-13 07:46 | NUR ---
06/13/20 0615 AWAKE THIS AM AND C/O BEING "COLD ALL NIGHT". STAFF HAD BEEN IN HER ROOM SEVERAL TIMES TO ASSIST TO BSC FOR VOIDING. PT DID NOT C/O CHILLS EARLIER. VITALS STABLE. O2 REMAINS AT 4LPM VIA N/A. PT REQUESTED ANTI-ANXIETY MEDS BUT INFORMED THAT IT IS TOO SOON FOR THEM NOW. FAIR NIGHT WITH BROKEN SLEEP DUE TO ANXIETY AND VOIDING NEEDS.
[2020-06-13] MEDS ORDERED: ACET325 PO (13:26)
[2020-06-13] MEDS ORDERED: BUSP10 PO (13:27)
[2020-06-13] MEDS ORDERED: CLON1 PO (13:28)
[2020-06-13] MEDS ORDERED: CLON2 PO (13:29)
[2020-06-13] MEDS ORDERED: FURO20 PO (13:30)
[2020-06-13] MEDS ORDERED: Prozac20 MG PO (13:30)
[2020-06-13] MEDS ORDERED: IPRAT-ALBUT 0.5-3 ML INH (13:33)
--- NOTE | 2020-06-13 15:00 | NUR ---
PATIENT D/C'D TO [facility] VIA AMBULANCE. REPORT CALLED TO MERT NURSE AT [facility]. BELONGINGS SENT WITH PATIENT AND PACKET GIVEN TO POLICE JUSTICE. PATIENT DENIES ANY FURTHER QUESTIONS OR CONCERNS.
== END 2020-06-13 15:07 | DRG 177 ==
LOC: ER 21:33 → ERHOLD 06-02 00:46 → PCU 06-02 00:46 → MEDS 06-02 17:08 → PCU 06-04 04:18 → MEDS 06-11 15:03 → ENPENDDIS 06-13 13:50 → MEDS 06-13 15:07
PROVIDERS: Emergency Medicine; Family Medicine; Hospitalist; Internal Medicine Endocrinology, Diabetes & Metabolism; Student in an Organized Health Care Education/Training Program; ADMIT Internal Medicine
PROC: XW033E5 Introduction of Remdesivir Anti-infective into Peripheral Vein, Percutaneous Approach, New Technology Group 5 (ICD-10-PCS; principal; 2020-06-01)
PROC: XW033E5 Introduction of Remdesivir Anti-infective into Peripheral Vein, Percutaneous Approach, New Technology Group 5 (ICD-10-PCS; 2020-06-02)
PROC: XW033E5 Introduction of Remdesivir Anti-infective into Peripheral Vein, Percutaneous Approach, New Technology Group 5 (ICD-10-PCS; 2020-06-03)
PROC: XW033E5 Introduction of Remdesivir Anti-infective into Peripheral Vein, Percutaneous Approach, New Technology Group 5 (ICD-10-PCS; 2020-06-04)
PROC: XW033E5 Introduction of Remdesivir Anti-infective into Peripheral Vein, Percutaneous Approach, New Technology Group 5 (ICD-10-PCS; 2020-06-05)
DX: U07.1 COVID-19 (principal); S06.5X9A Traumatic subdural hemorrhage with loss of consciousness of unspecified duration, initial encounter; J96.01 Acute respiratory failure with hypoxia; J12.82 Pneumonia due to coronavirus disease 2019; N18.4 Chronic kidney disease, stage 4 (severe); C20 Malignant neoplasm of rectum; Z51.5 Encounter for palliative care; Z87.891 Personal history of nicotine dependence; E11.22 Type 2 diabetes mellitus with diabetic chronic kidney disease; I12.9 Hypertensive chronic kidney disease with stage 1 through stage 4 chronic kidney disease, or unspecified chronic kidney disease; E86.0 Dehydration; E87.6 Hypokalemia; G25.81 Restless legs syndrome; F41.9 Anxiety disorder, unspecified; G47.01 Insomnia due to medical condition; R07.81 Pleurodynia; E89.0 Postprocedural hypothyroidism; W19.XXXA Unspecified fall, initial encounter; Y93.9 Activity, unspecified; Y92.9 Unspecified place or not applicable
CPT/HCPCS: 36415; 36600; 70450; 71045; 71260; 80048; 80053; 81001; 82550; 82803; 83735; 83880; 85025; 85379; 87086; 93005; 93010; 94660; 94760; 94762; 96365; 96366; 96367; 96368; 96372; 96375; 96376; 97110; 97116; 97162; 97165; 97530; 97535; 99285-25; A9270; C1751; J1100; J1170; J1650; J1940; J2060; J3475; J3480; J7030; J7050; Q9967

== ENCOUNTER → 2021-06-19 | Outpatient (CLI) | payer OTHER ==
[~2021-06-19] MED LIST changes: +ACET325 PO; +BUSP10 PO; +CLON1 PO; +CLON2 PO; +FURO20 PO; +IPRAT-ALBUT 0.5-3 ML INH; +Prozac20 MG PO; +Ropinirole HCl1 MG PO
[2021-06-19 12:24] LABS: BASOPHILS ABSOLUTE AUTO 0.02 K/mm3 (0.00-0.23); BASOPHILS PERCENT AUTO 0 % (0-2); EOSINOPHILS ABSOLUTE AUTO 0.32 K/mm3 (0.00-0.68); EOSINOPHILS PERCENT AUTO 2 % (0-6); Hematocrit 33.9 % (33.0-51.0); Hemoglobin 10.9 g/dL (11.5-16.0); IMMATURE GRAN ABSOLUTE AUTO 0.06 K/mm3 (0.00-0.10); IMMATURE GRAN PERCENT AUTO 0 % (0-1); LYMPHOCYTES PERCENT AUTO 4 % (21-46); MONOCYTES ABSOLUTE AUTO 0.96 K/mm3 (0.16-1.47); MONOCYTES PERCENT AUTO 7 % (4-13); Mean Corpuscular HGB 29.6 pg (26.0-34.0); Mean Corpuscular HGB Conc 32.2 g/dL (31.5-36.5); Mean Corpuscular Volume 92 fL (80-100); Mean Platelet Volume 9.8 fL (9.1-12.4); NEUTROPHILS ABSOLUTE AUTO 11.63 K/mm3 (1.96-9.15); NEUTROPHILS PERCENT AUTO 86 % (41-73); Platelet Count 297 K/mm3 (150-400); RDW Coefficient Variation 13.6 % (11.7-14.2); RDW Standard Deviation 46.2 fL (35.1-46.3); Red Blood Cell Count 3.68 M/mm3 (3.80-5.20); White Blood Cell Count 13.59 K/mm3 (4.00-11.30)
[2021-06-19 12:34] LABS: Albumin, Blood 3.2 g/dL (3.4-5.0); Albumin/Globulin Ratio 1.1 (0.8-1.8); Bilirubin, Total 0.5 mg/dL (0.1-1.0); Bun/Creatinine Ratio 23.1 (12.0-20.0); Calcium, Blood 8.3 mg/dL (8.5-10.1); Creatinine, Blood 1.3 mg/dL (0.40-1.00); Globulin, Blood 2.8 g/dL (2.2-4.0)
== END ==
LOC: LAB SHORT 12:20 → LAB 12:20
PROVIDERS: Physician Assistant
DX: R11.2 Nausea with vomiting, unspecified (principal)
CPT/HCPCS: 80053; 85025

== ENCOUNTER 2021-06-22 12:23 | Inpatient (IN) | payer OTHER ==
[~2021-06-22] VITALS: Ht 172.7 cm; Wt 92.6 kg
[~2021-06-22 12:23] MED LIST changes: +EUTHYROX125 MC1 PO; -EUTHYROX137 MC1 PO; +ROPINIROLE HCL4 M1 PO; -Ropinirole HCl1 MG PO
[2021-06-22 13:05] LABS: BASOPHILS ABSOLUTE AUTO 0.07 K/mm3 (0.00-0.23); BASOPHILS PERCENT AUTO 0 % (0-2); EOSINOPHILS ABSOLUTE AUTO 0.38 K/mm3 (0.00-0.68); EOSINOPHILS PERCENT AUTO 2 % (0-6); Hematocrit 34.6 % (33.0-51.0); Hemoglobin 11.3 g/dL (11.5-16.0); IMMATURE GRAN ABSOLUTE AUTO 0.24 K/mm3 (0.00-0.10); IMMATURE GRAN PERCENT AUTO 1 % (0-1); LYMPHOCYTES ABSOLUTE AUTO 0.74 K/mm3 (0.84-5.20); LYMPHOCYTES PERCENT AUTO 4 % (21-46); MONOCYTES ABSOLUTE AUTO 1.08 K/mm3 (0.16-1.47); MONOCYTES PERCENT AUTO 6 % (4-13); Mean Corpuscular HGB 29.5 pg (26.0-34.0); Mean Corpuscular HGB Conc 32.7 g/dL (31.5-36.5); Mean Corpuscular Volume 90 fL (80-100); Mean Platelet Volume 9.5 fL (9.1-12.4); NEUTROPHILS ABSOLUTE AUTO 15.31 K/mm3 (1.96-9.15); NEUTROPHILS PERCENT AUTO 86 % (41-73); Platelet Count 322 K/mm3 (150-400); RDW Coefficient Variation 13.1 % (11.7-14.2); RDW Standard Deviation 43.2 fL (35.1-46.3); Red Blood Cell Count 3.83 M/mm3 (3.80-5.20); White Blood Cell Count 17.82 K/mm3 (4.00-11.30)
[2021-06-22 13:55] LABS: Albumin, Blood 2.5 g/dL (3.4-5.0); Albumin/Globulin Ratio 0.6 (0.8-1.8); Bilirubin, Total 0.4 mg/dL (0.1-1.0); Calcium, Blood 8.3 mg/dL (8.5-10.1); Potassium, Blood 3.6 mmol/L (3.5-5.5); Total Protein, Blood 6.5 g/dL (6.4-8.2)
--- NOTE | 2021-06-22 18:21 | NUR ---
ADMISSION PT ADMITTED TO 358. PT ORIENTED TO ROOM. CALL LIGHT IN REACH. WATER PROVIDED. IV FLUIDS HOOKED UP AND RUNNING. ZOFRAN GIVEN FOR NAUSEA. TWO LOOSE STOOLS OCCURED SINCE ADMIT SO FAR.
[2021-06-22 22:01] LABS: Source, Urine Clean Catch
[2021-06-22 22:04] LABS: Bilirubin, Urine Neg (Neg); Blood, Urine Neg (Neg); Glucose Qualitative, Urine Neg (Neg); Ketones, Urine Neg (Neg); Leukocyte Esterase, Urine 1+ (Neg); Nitrite, Urine Neg (Neg); Protein, Urine 2+ (Neg); Specific Gravity, Urine 1.015 (1.003-1.022); Urobilinogen, Urine NORM (Normal)
[2021-06-22 22:12] LABS: Appearance, Urine Clear (Clear); Bacteria Rare /hpf; Color, Urine Yellow (P-Yellow); Red Blood Cells, Urine Not Seen /hpf (0-2); Squamous Epithelial Cells Not Seen /hpf (Few); White Blood Cells, Urine 0-2 /hpf (0-5)
[2021-06-22 23:20] LABS: Adenovirus F 40/41 Not Detected (NOT DETECT); Astrovirus Not Detected (NOT DETECT); Campylobacter Sp Not Detected (NOT DETECT); Cryptosporidium Not Detected (NOT DETECT); Cyclospora Cayetanensis Not Detected (NOT DETECT); E. Coli O157 Not Detected (NOT DETECT); Entamoeba Histolytica Not Detected (NOT DETECT); Enteroaggregative E. coli-EAEC Not Detected (NOT DETECT); Enteropathogenic E. coli-EPEC Not Detected (NOT DETECT); Enterotoxigenic E. coli-ETEC Not Detected (NOT DETECT); Giardia Lamblia Not Detected (NOT DETECT); Norovirus GI/GII Not Detected (NOT DETECT); Plesiomonas Shigelloides Not Detected (NOT DETECT); Rotavirus A Not Detected (NOT DETECT); Salmonella Sp Not Detected (NOT DETECT); Sapovirus Not Detected (NOT DETECT); Shiga Toxin-prod E. coli-STEC Not Detected (NOT DETECT); Shigella/Enteroin E. coli-EIEC Not Detected (NOT DETECT); Vibrio Cholerae Not Detected (NOT DETECT); Vibrio Sp Not Detected (NOT DETECT); Yersinia Enterocolitica Not Detected (NOT DETECT)
--- NOTE | 2021-06-23 03:36 | NUR ---
DR BRAVO called with positive cdiff in PT who completed chemo for stage 3 rectal cancer about a year ago. oral vanco ordered. On IV flagyl q 8 hr. pt had diarrhea NV x 8 days perior to admit & unable to hold down any oral intake. on OVF with Kt is having water juice applesauce. medicated for nausea with zofran x 1 with helpful effect. probiotic also ordered by . PT having mutiple orance sm mucousy stools. Abd cramping. UA sent uncollected in ER. culture pending.
[2021-06-23 05:03] LABS: BASOPHILS ABSOLUTE AUTO 0.06 K/mm3 (0.00-0.23); BASOPHILS PERCENT AUTO 0 % (0-2); EOSINOPHILS ABSOLUTE AUTO 0.48 K/mm3 (0.00-0.68); EOSINOPHILS PERCENT AUTO 3 % (0-6); Hematocrit 31.1 % (33.0-51.0); Hemoglobin 10.1 g/dL (11.5-16.0); IMMATURE GRAN ABSOLUTE AUTO 0.26 K/mm3 (0.00-0.10); IMMATURE GRAN PERCENT AUTO 2 % (0-1); LYMPHOCYTES ABSOLUTE AUTO 0.68 K/mm3 (0.84-5.20); LYMPHOCYTES PERCENT AUTO 4 % (21-46); MONOCYTES ABSOLUTE AUTO 1.14 K/mm3 (0.16-1.47); MONOCYTES PERCENT AUTO 6 % (4-13); Mean Corpuscular HGB 29.1 pg (26.0-34.0); Mean Corpuscular HGB Conc 32.5 g/dL (31.5-36.5); Mean Corpuscular Volume 90 fL (80-100); Mean Platelet Volume 9.4 fL (9.1-12.4); NEUTROPHILS ABSOLUTE AUTO 15.14 K/mm3 (1.96-9.15); NEUTROPHILS PERCENT AUTO 85 % (41-73); Platelet Count 306 K/mm3 (150-400); RDW Coefficient Variation 13.2 % (11.7-14.2); RDW Standard Deviation 43.7 fL (35.1-46.3); Red Blood Cell Count 3.47 M/mm3 (3.80-5.20); White Blood Cell Count 17.76 K/mm3 (4.00-11.30)
[2021-06-23 05:13] LABS: Albumin, Blood 2.3 g/dL (3.4-5.0); Albumin/Globulin Ratio 0.7 (0.8-1.8); Bilirubin, Total 0.3 mg/dL (0.1-1.0); Bun/Creatinine Ratio 16.5 (12.0-20.0); Calcium, Blood 7.7 mg/dL (8.5-10.1); Creatinine, Blood 1.03 mg/dL (0.40-1.00); Globulin, Blood 3.3 g/dL (2.2-4.0); Potassium, Blood 3.3 mmol/L (3.5-5.5); Total Protein, Blood 5.6 g/dL (6.4-8.2)
--- NOTE | 2021-06-23 16:33 | NUR ---
This [facility] CM visited patient in her room this morning. Patient confirmed her phone number and address. Patient reports she lives at home with her bed bound spouse who she takes care of. Spouse's daughter is currently taking care of her spouse while she is here at [facility]. Pt lives in a single story home, does not use any dme, and is independent in her home. Pt is able to drive herself but, states her friend, Tara will be providing discharge transportation. Pt manages her own medications. No needs currently anticipated post discharge. Will follow-up with the patient tomorrow.
--- NOTE | 2021-06-23 17:48 | NUR ---
PATIENT A&OX4. RESTING COMFORTABLY IN BED. COMPLAINTS OF NAUSEA AND DIARRHEA, MEDICATED PER EMR. ALL QUESTIONS ANSWERED. CALL LIGHT WITHIN REACH AND BED IN LOWEST POSITION.
[2021-06-24] MEDS ORDERED: CHLO25B PO (04:32)
[2021-06-24 05:32] LABS: BASOPHILS ABSOLUTE AUTO 0.06 K/mm3 (0.00-0.23); BASOPHILS PERCENT AUTO 1 % (0-2); EOSINOPHILS ABSOLUTE AUTO 0.74 K/mm3 (0.00-0.68); EOSINOPHILS PERCENT AUTO 6 % (0-6); Hematocrit 31.1 % (33.0-51.0); Hemoglobin 9.8 g/dL (11.5-16.0); IMMATURE GRAN ABSOLUTE AUTO 0.37 K/mm3 (0.00-0.10); IMMATURE GRAN PERCENT AUTO 3 % (0-1); LYMPHOCYTES ABSOLUTE AUTO 0.99 K/mm3 (0.84-5.20); LYMPHOCYTES PERCENT AUTO 7 % (21-46); MONOCYTES ABSOLUTE AUTO 0.73 K/mm3 (0.16-1.47); MONOCYTES PERCENT AUTO 6 % (4-13); Mean Corpuscular HGB 29.1 pg (26.0-34.0); Mean Corpuscular HGB Conc 31.5 g/dL (31.5-36.5); Mean Corpuscular Volume 92 fL (80-100); Mean Platelet Volume 9.2 fL (9.1-12.4); NEUTROPHILS ABSOLUTE AUTO 10.42 K/mm3 (1.96-9.15); NEUTROPHILS PERCENT AUTO 78 % (41-73); Platelet Count 297 K/mm3 (150-400); RDW Coefficient Variation 13.4 % (11.7-14.2); RDW Standard Deviation 45.4 fL (35.1-46.3); Red Blood Cell Count 3.37 M/mm3 (3.80-5.20); White Blood Cell Count 13.31 K/mm3 (4.00-11.30)
[2021-06-24 05:58] LABS: Calcium, Blood 7.5 mg/dL (8.5-10.1); Potassium, Blood 3.4 mmol/L (3.5-5.5)
--- NOTE | 2021-06-24 07:14 | NUR ---
PT with stage 3 rectal cancer tx ended around 1 year ago per PT report. She had 8 days NV diarrhea prior to admission & she was unable to tolerate oral intake. She is on ivf with kplus & on oral vanco to tx cdiff colitis. She is tolerating oral intake with less nausea but continues with multiple small bowel movements. She is up to BSC indep wears pullup & has small amts of fecal incont.
[2021-06-25 05:17] LABS: Hematocrit 29.4 % (33.0-51.0); Hemoglobin 9.4 g/dL (11.5-16.0); Mean Corpuscular HGB 29.3 pg (26.0-34.0); Mean Corpuscular Volume 92 fL (80-100); Mean Platelet Volume 9.1 fL (9.1-12.4); Platelet Count 290 K/mm3 (150-400); RDW Coefficient Variation 13.3 % (11.7-14.2); RDW Standard Deviation 45.1 fL (35.1-46.3); Red Blood Cell Count 3.21 M/mm3 (3.80-5.20)
[2021-06-25 05:52] LABS: Bun/Creatinine Ratio 8.6 (12.0-20.0); Calcium, Blood 7.6 mg/dL (8.5-10.1); Creatinine, Blood 0.94 mg/dL (0.40-1.00); Potassium, Blood 3.6 mmol/L (3.5-5.5)
[2021-06-25 06:21] LABS: BAND PERCENT MAN 3 % (0-8); BASOPHILS PERCENT MAN 0 % (0-2); EOSINOPHILS ABSOLUTE MAN 0.87 K/mm3 (0.00-0.68); EOSINOPHILS PERCENT MAN 8 % (0-6); LYMPHOCYTES ABSOLUTE MAN 0.43 K/mm3 (0.84-5.20); LYMPHOCYTES PERCENT MAN 4 % (21-46); METAMYELOCYTE ABSOLUTE MAN 0.21 K/mm3 (0.00-0.00); METAMYELOCYTE PERCENT MAN 2 % (0-0); MONOCYTES ABSOLUTE MAN 0.32 K/mm3 (0.16-1.47); MONOCYTES PERCENT MAN 3 % (4-13); MYELOCYTE ABSOLUTE MAN 0.21 K/mm3 (0.00-0.00); MYELOCYTE PERCENT MAN 2 % (0-0); NEUTROPHILS ABSOLUTE MAN 8.82 K/mm3 (1.96-9.15); SEG NEUTROPHILS PERCENT MAN 78 % (41-73); TOTAL CELLS COUNTED 100
--- NOTE | 2021-06-25 07:16 | NUR ---
Alert and oriented x's 4. Slept well through night. Up to BSC independently, continued to have watery stools. Denies nausea/vomitting. Safety maintained, call cordova in reach.
--- NOTE | 2021-06-25 16:03 | NUR ---
SHIFT SUMMARY PATIENT IS ALERT AND ORIENTED X4. PATIENT IS CDIFF POSITIVE. PATIENT HAS BEEN HAVING WATERY STOOLS THIS SHIFT. PATIENT IS IND TO BEDSIDE COMMODE. PATIENT HAS DENIED NAUSEA, VOMITTING, PAIN OR SOB THIS SHIFT. NO ACUTE EVENTS THIS SHIFT. VITAL SIGNS REVIEWED. PATIENT IS ON TELE. PATIENT HAS BEEN HAVING KCL RUNNING AT 125MLS/HR. CALL LIGHT IN PLACE. BED IN LOCKED AND LOWEST POSITION. WILL MONITOR UNTIL SHIFT CHANGE.
[2021-06-26 04:46] LABS: Hematocrit 30.4 % (33.0-51.0); Hemoglobin 9.9 g/dL (11.5-16.0); Mean Corpuscular HGB 29.4 pg (26.0-34.0); Mean Corpuscular HGB Conc 32.6 g/dL (31.5-36.5); Mean Corpuscular Volume 90 fL (80-100); Mean Platelet Volume 8.8 fL (9.1-12.4); NRBC ABSOLUTE 0.02 K/mm3 (0.00-0.02); NRBC Auto 0.2 /100 WBC (0.0-0.2); Platelet Count 283 K/mm3 (150-400); RDW Coefficient Variation 13.2 % (11.7-14.2); RDW Standard Deviation 43.9 fL (35.1-46.3); Red Blood Cell Count 3.37 M/mm3 (3.80-5.20); White Blood Cell Count 10.85 K/mm3 (4.00-11.30)
[2021-06-26 05:20] LABS: Anion Gap 5 mmol/L (6-16); Blood Urea Nitrogen 9 mg/dL (8-24); Bun/Creatinine Ratio 9.8 (12.0-20.0); CO2, Blood 23 mmol/L (21-32); Calcium, Blood 7.9 mg/dL (8.5-10.1); Chloride, Blood 116 mmol/L (98-108); Creatinine, Blood 0.92 mg/dL (0.40-1.00); Glomerular Filtration Rate >60 (60-); Glucose, Blood 102 mg/dL (70-99); Potassium, Blood 3.4 mmol/L (3.5-5.5); Sodium, Blood 144 mmol/L (136-145)
[2021-06-26 06:09] LABS: BAND PERCENT MAN 3 % (0-8); BASOPHILS PERCENT MAN 0 % (0-2); EOSINOPHILS ABSOLUTE MAN 0.97 K/mm3 (0.00-0.68); EOSINOPHILS PERCENT MAN 9 % (0-6); LYMPHOCYTES ABSOLUTE MAN 0.32 K/mm3 (0.84-5.20); LYMPHOCYTES PERCENT MAN 3 % (21-46); MONOCYTES ABSOLUTE MAN 0.21 K/mm3 (0.16-1.47); MONOCYTES PERCENT MAN 2 % (4-13); MYELOCYTE ABSOLUTE MAN 0.43 K/mm3 (0.00-0.00); MYELOCYTE PERCENT MAN 4 % (0-0); NEUTROPHILS ABSOLUTE MAN 8.89 K/mm3 (1.96-9.15); SEG NEUTROPHILS PERCENT MAN 79 % (41-73); TOTAL CELLS COUNTED 100
[2021-06-26] MEDS ORDERED: VANCOCIN HCL125 MG PO (12:22)
--- NOTE | 2021-06-26 12:49 | NUR ---
Received referral from [facility] Operations Inspector (Isabel Aden) on 06/26/2021. Patient is to discharge 06/26/2021 with orders for home health and elected [facility]. Patient was admitted to [facility] on 06/24/2021 due to acute gastritis without bleeding. Discussed patient's condition, baseline, and home in regards to homebound status. Based on information provided by patient they are not currently homebound. No further interventions Jennifer Nelson Referral Liaison
--- NOTE | 2021-06-26 14:32 | NUR ---
SHIFT SUMMARY PATIENT IS ALERT AND ORIENTED X4. PATIENT WAS WHEELED DOWN BY SCOTT MENDEZ TO [facility] WITHOUT INCIDENT. THIS RN READ AND PATIENT UNDERSTOOD DISCHARGE INSTRUCTIONS. PATIENT HAS HAD NO ACUTE INCIDENTS THIS SHIFT. VITAL SIGNS REVIEWED.
== END 2021-06-26 14:35 | disposition home health service (06) | DRG 872 ==
LOC: ER 12:23 → MEDS 12:34 → ENPENDDIS 06-26 12:21 → MEDS 06-26 14:35
PROVIDERS: Physician Assistant; ADMIT Family Medicine
DX: A41.89 Other specified sepsis (principal); N18.4 Chronic kidney disease, stage 4 (severe); A04.72 Enterocolitis due to Clostridium difficile, not specified as recurrent; K29.00 Acute gastritis without bleeding; E86.0 Dehydration; E87.6 Hypokalemia; I12.9 Hypertensive chronic kidney disease with stage 1 through stage 4 chronic kidney disease, or unspecified chronic kidney disease; E11.22 Type 2 diabetes mellitus with diabetic chronic kidney disease; Z68.30 Body mass index [BMI] 30.0-30.9, adult; F41.8 Other specified anxiety disorders; G47.00 Insomnia, unspecified; E89.0 Postprocedural hypothyroidism; D64.9 Anemia, unspecified; E66.9 Obesity, unspecified; E78.5 Hyperlipidemia, unspecified; Z88.5 Allergy status to narcotic agent; Z88.8 Allergy status to other drugs, medicaments and biological substances; Z79.899 Other long term (current) drug therapy; Z87.891 Personal history of nicotine dependence; Z90.710 Acquired absence of both cervix and uterus; Z90.49 Acquired absence of other specified parts of digestive tract; Z98.890 Other specified postprocedural states; Z85.048 Personal history of other malignant neoplasm of rectum, rectosigmoid junction, and anus
CPT/HCPCS: 0097U; 36415; 71045; 74177; 80048; 80053; 81001; 83690; 84439; 84443; 84484; 85025; 87086; 87324; 93005; 93010; 96365; 96366; 96372; 96375; 96376; 99285-25; A9270; G0378; J0295; J1650; J2405; J3480; J7030; J7050; Q9967

== ENCOUNTER 2021-07-15 17:53 | Inpatient (IN) | payer OTHER ==
[~2021-07-15] VITALS: Ht 172.7 cm; Wt 90.7 kg
[~2021-07-15 17:53] MED LIST changes: +VANCOCIN HCL125 MG PO
[2021-07-15 18:42] LABS: BASOPHILS ABSOLUTE AUTO 0.03 K/mm3 (0.00-0.23); BASOPHILS PERCENT AUTO 0 % (0-2); EOSINOPHILS PERCENT AUTO 3 % (0-6); Hematocrit 38.7 % (33.0-51.0); Hemoglobin 12.3 g/dL (11.5-16.0); IMMATURE GRAN ABSOLUTE AUTO 0.03 K/mm3 (0.00-0.10); IMMATURE GRAN PERCENT AUTO 0 % (0-1); LYMPHOCYTES ABSOLUTE AUTO 0.97 K/mm3 (0.84-5.20); LYMPHOCYTES PERCENT AUTO 8 % (21-46); MONOCYTES ABSOLUTE AUTO 1.25 K/mm3 (0.16-1.47); MONOCYTES PERCENT AUTO 11 % (4-13); Mean Corpuscular HGB 29.3 pg (26.0-34.0); Mean Corpuscular HGB Conc 31.8 g/dL (31.5-36.5); Mean Corpuscular Volume 92 fL (80-100); Mean Platelet Volume 9.7 fL (9.1-12.4); NEUTROPHILS ABSOLUTE AUTO 9.16 K/mm3 (1.96-9.15); NEUTROPHILS PERCENT AUTO 78 % (41-73); Platelet Count 374 K/mm3 (150-400); RDW Coefficient Variation 13.8 % (11.7-14.2); RDW Standard Deviation 46.4 fL (35.1-46.3); White Blood Cell Count 11.74 K/mm3 (4.00-11.30)
[2021-07-15 19:04] LABS: Albumin, Blood 3.6 g/dL (3.4-5.0); Albumin/Globulin Ratio 0.9 (0.8-1.8); Bilirubin, Total 0.8 mg/dL (0.1-1.0); Bun/Creatinine Ratio 20.8 (12.0-20.0); Calcium, Blood 8.8 mg/dL (8.5-10.1); Creatinine, Blood 1.49 mg/dL (0.40-1.00); Globulin, Blood 3.9 g/dL (2.2-4.0); Total Protein, Blood 7.5 g/dL (6.4-8.2)
--- NOTE | 2021-07-16 06:05 | NUR ---
Received patient from ER, came in with abdominal pain, N/V/D. She is admitted for CLYDE, Colitis with C-DIFF. She is stable at this time. She is breathing at room air, Unlabored. She is receiving N/S @ 125 ML/HR. She is independent in the room. She is able to communicates her needs. She is alert and oriented, pleasand and cooperative with care. Bed in low position, call light within reach. We will continue to monitor patient for any acute changes.
[2021-07-16 07:35] LABS: Bun/Creatinine Ratio 17.6 (12.0-20.0); Calcium, Blood 7.8 mg/dL (8.5-10.1); Creatinine, Blood 1.88 mg/dL (0.40-1.00); Potassium, Blood 3.8 mmol/L (3.5-5.5)
--- NOTE | 2021-07-16 16:56 | NUR ---
DAY SHIFT SUMMARY 66 YR OLD FEMALE ADMITTED FOR DIARRHEA, POSITIVE FOR C-DIFF. CALL LIGHT WITHIN REACH AND ABLE TO CALL APPROPRIATELY. A/O X4 ON RA. DIET CHANGED FROM REGULAR TO CLEAR LIQUIDS. INDEPENDENT IN ROOM. BED SIDE TOILET NEXT TO BED.
[2021-07-17 05:14] LABS: BASOPHILS ABSOLUTE AUTO 0.02 K/mm3 (0.00-0.23); BASOPHILS PERCENT AUTO 0 % (0-2); EOSINOPHILS ABSOLUTE AUTO 0.19 K/mm3 (0.00-0.68); EOSINOPHILS PERCENT AUTO 2 % (0-6); Hematocrit 29.1 % (33.0-51.0); Hemoglobin 9.5 g/dL (11.5-16.0); IMMATURE GRAN ABSOLUTE AUTO 0.03 K/mm3 (0.00-0.10); IMMATURE GRAN PERCENT AUTO 0 % (0-1); LYMPHOCYTES ABSOLUTE AUTO 0.89 K/mm3 (0.84-5.20); LYMPHOCYTES PERCENT AUTO 10 % (21-46); MONOCYTES ABSOLUTE AUTO 0.98 K/mm3 (0.16-1.47); MONOCYTES PERCENT AUTO 11 % (4-13); Mean Corpuscular HGB 29.5 pg (26.0-34.0); Mean Corpuscular HGB Conc 32.6 g/dL (31.5-36.5); Mean Corpuscular Volume 90 fL (80-100); Mean Platelet Volume 9.7 fL (9.1-12.4); NEUTROPHILS ABSOLUTE AUTO 7.05 K/mm3 (1.96-9.15); NEUTROPHILS PERCENT AUTO 77 % (41-73); Platelet Count 240 K/mm3 (150-400); RDW Coefficient Variation 13.7 % (11.7-14.2); RDW Standard Deviation 46.1 fL (35.1-46.3); Red Blood Cell Count 3.22 M/mm3 (3.80-5.20); White Blood Cell Count 9.16 K/mm3 (4.00-11.30)
[2021-07-17 05:33] LABS: Albumin, Blood 2.6 g/dL (3.4-5.0); Albumin/Globulin Ratio 0.8 (0.8-1.8); Bilirubin, Total 0.4 mg/dL (0.1-1.0); Calcium, Blood 7.9 mg/dL (8.5-10.1); Creatinine, Blood 1.35 mg/dL (0.40-1.00); Globulin, Blood 3.2 g/dL (2.2-4.0); Magnesium, Blood 2.1 mg/dL (1.6-2.4); Phosphorus, Blood 3.3 mg/dL (2.5-4.9); Potassium, Blood 3.5 mmol/L (3.5-5.5); Total Protein, Blood 5.8 g/dL (6.4-8.2)
--- NOTE | 2021-07-17 05:34 | NUR ---
SHIFT SUMMARY: A/OX3 DISORIENTED TO TIME. PT INDEPENDENT TRANSFER FROM BED TO BEDSIDE COMMODE-STEADY ON FEET. SEVERAL DIARRHEA BOWEL MOVEMENTS DURING THIS SHIFT. PROVIDED EDUCATION ON PROPER OCTAVIA CARE TO PREVENT UTI. NO COMPLAINTS OF PAIN. BED IN LOW POSITION, CALL AGUILERA AND PERSONAL BELONGINGS IN REACH.
--- NOTE | 2021-07-17 12:09 | NUR ---
Pt. is in bed resting. Pt. welcomes me when I enter the room. Pt. is unsettled by discomfort and concerns about missing work and the ability to make an income while she is ill. Listen empathetically and establish rapport. 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 Pt. displays evidene of increased trust, and lower anxiety. Prayed with Pt. Pt. verbalized gratitude for the spiritual care visit.
--- NOTE | 2021-07-17 17:32 | NUR ---
DAY SHIFT SUMMARY PT ADMITTED WITH C-DIFF. CLEAR LIQUID DIET ON RA. NO ACUTE CHANGES THIS SHIFT. CALL LIGHT WITHIN REACH OF PT AND ABLE TO CALL APPROPRIATE. PT STILL EXPERIENCING DIARRHEA.
--- NOTE | 2021-07-18 04:15 | NUR ---
SHIFT SUMMARY: PT A/OX4 INDEPENDENTLY TRANSFERS SELF TO BEDSIDE COMMODE, INDEPENDENTLY PERFORMS ADL'S. IV FLUIDS STARTED THIS SHIFT, NEW IV SITE NEEDED DUE TO PRIOR IV LEAKING. PT RESTING ON ROUNDING THROUGHOUT THE NIGHT. CONTINUES TO HAVE LOOSE STOOLS THIS SHIFT. NO PAIN REPORTED, DID HAVE AN EPISODE OF NAUSEA RELIEVED WITH IV ZOFRAN. BED IN LOW POSITION, CALL AGUILERA IN REACH, BELONGINGS IN REACH. EDUCATION PROVIDED ON IV FLUIDS AND HOW TO MOBILIZE SAFELY WITH IV POLE.
[2021-07-18 05:24] LABS: BASOPHILS ABSOLUTE AUTO 0.02 K/mm3 (0.00-0.23); BASOPHILS PERCENT AUTO 0 % (0-2); EOSINOPHILS PERCENT AUTO 3 % (0-6); Hematocrit 29.9 % (33.0-51.0); Hemoglobin 9.8 g/dL (11.5-16.0); IMMATURE GRAN ABSOLUTE AUTO 0.04 K/mm3 (0.00-0.10); IMMATURE GRAN PERCENT AUTO 0 % (0-1); LYMPHOCYTES ABSOLUTE AUTO 0.79 K/mm3 (0.84-5.20); LYMPHOCYTES PERCENT AUTO 9 % (21-46); MONOCYTES ABSOLUTE AUTO 0.82 K/mm3 (0.16-1.47); MONOCYTES PERCENT AUTO 9 % (4-13); Mean Corpuscular HGB 29.3 pg (26.0-34.0); Mean Corpuscular HGB Conc 32.8 g/dL (31.5-36.5); Mean Corpuscular Volume 89 fL (80-100); Mean Platelet Volume 9.8 fL (9.1-12.4); NEUTROPHILS PERCENT AUTO 79 % (41-73); Platelet Count 251 K/mm3 (150-400); RDW Coefficient Variation 13.4 % (11.7-14.2); RDW Standard Deviation 43.9 fL (35.1-46.3); Red Blood Cell Count 3.35 M/mm3 (3.80-5.20); White Blood Cell Count 9.27 K/mm3 (4.00-11.30)
[2021-07-18 05:47] LABS: Albumin, Blood 2.6 g/dL (3.4-5.0); Anion Gap 7 mmol/L (6-16); Blood Urea Nitrogen 17 mg/dL (8-24); Bun/Creatinine Ratio 18.8 (12.0-20.0); CO2, Blood 22 mmol/L (21-32); Calcium, Blood 8.3 mg/dL (8.5-10.1); Chloride, Blood 111 mmol/L (98-108); Creatinine, Blood 0.91 mg/dL (0.40-1.00); Glomerular Filtration Rate >60 (60-); Glucose, Blood 115 mg/dL (70-99); Magnesium, Blood 1.8 mg/dL (1.6-2.4); Phosphorus, Blood 2.9 mg/dL (2.5-4.9); Potassium, Blood 3.5 mmol/L (3.5-5.5); Sodium, Blood 140 mmol/L (136-145)
--- NOTE | 2021-07-18 17:34 | NUR ---
SHIFT SUMMARY PT AWAKE AT START OF SHIFT. UP INDEPENDENTLY TO BSC. DR WATT IN TO SEE PT EARLY. IVF'S D/C'D AND DIET ADVANCED TO FL FOR LUNCH. PT TOLERATED FL DIET WELL AND REQUESTED REG DIET FOR DINNER. DIET ADVANCED TOLERATED, PER ORDERS. PT REPORTING DIARRHEA DECREASING THIS AM AND THRU OUT THE DAY. UP TO SHOWER THIS AM. NO C/O TO PRESENT. VISITOR TO THIS AFTERNOON. CALL LT IN REACH. ABLE TO MAKE NEEDS KNOWN.
--- NOTE | 2021-07-19 04:51 | NUR ---
PT IS A&OX4, INDEPENDENT WITH CARES AND IS ABLE TO MAKE NEEDS KNOWN. PT REPORTS DECREASING DIARRHEA. SLEEPS THROUGH THE NIGHT. PT REQUESTED PRN KLONOPIN FOR ANXIETY WITH GOOD RESULTS. TOLERATING CLEAR LIQUID DIET. NO CHANGES THIS SHIFT. WILL CONTINUE TO MONITOR.
[2021-07-19 05:51] LABS: BASOPHILS ABSOLUTE AUTO 0.03 K/mm3 (0.00-0.23); BASOPHILS PERCENT AUTO 0 % (0-2); EOSINOPHILS ABSOLUTE AUTO 0.41 K/mm3 (0.00-0.68); EOSINOPHILS PERCENT AUTO 5 % (0-6); Hematocrit 29.7 % (33.0-51.0); IMMATURE GRAN ABSOLUTE AUTO 0.08 K/mm3 (0.00-0.10); IMMATURE GRAN PERCENT AUTO 1 % (0-1); LYMPHOCYTES ABSOLUTE AUTO 0.85 K/mm3 (0.84-5.20); LYMPHOCYTES PERCENT AUTO 11 % (21-46); MONOCYTES ABSOLUTE AUTO 0.63 K/mm3 (0.16-1.47); MONOCYTES PERCENT AUTO 8 % (4-13); Mean Corpuscular HGB 29.4 pg (26.0-34.0); Mean Corpuscular HGB Conc 33.7 g/dL (31.5-36.5); Mean Corpuscular Volume 87 fL (80-100); Mean Platelet Volume 9.8 fL (9.1-12.4); NEUTROPHILS ABSOLUTE AUTO 5.92 K/mm3 (1.96-9.15); NEUTROPHILS PERCENT AUTO 75 % (41-73); Platelet Count 274 K/mm3 (150-400); RDW Coefficient Variation 13.2 % (11.7-14.2); RDW Standard Deviation 42.4 fL (35.1-46.3); White Blood Cell Count 7.92 K/mm3 (4.00-11.30)
[2021-07-19 06:02] LABS: Albumin, Blood 2.6 g/dL (3.4-5.0); Anion Gap 5 mmol/L (6-16); Blood Urea Nitrogen 12 mg/dL (8-24); Bun/Creatinine Ratio 13.8 (12.0-20.0); CO2, Blood 25 mmol/L (21-32); Calcium, Blood 8.3 mg/dL (8.5-10.1); Chloride, Blood 111 mmol/L (98-108); Creatinine, Blood 0.87 mg/dL (0.40-1.00); Glomerular Filtration Rate >60 (60-); Glucose, Blood 102 mg/dL (70-99); Magnesium, Blood 1.9 mg/dL (1.6-2.4); Phosphorus, Blood 2.8 mg/dL (2.5-4.9); Potassium, Blood 3.4 mmol/L (3.5-5.5); Sodium, Blood 141 mmol/L (136-145)
[2021-07-19] MEDS ORDERED: VISBIOME 112.51 EACH PO (10:44)
[2021-07-19] MEDS ORDERED: DIFICID200 MG PO (10:44)
--- NOTE | 2021-07-19 14:08 | NUR ---
PT UP INDEPENDENTLY IN . REPORTED THAT SHE WAS ABLE TO SLEEP ALL NIGHT, NO EPISODES OF DIARRHEA AT ALL. PT ABLE TO TOLERATE REG DINNER AND BREAKFAST. DR WATT IN TO SEE PT AND DISCUSS PLAN OF CARE. PT CONTINUED TO REPORT IMPROVEMENT FROM DIARRHEA. D/C ORDERS PLACED. MEDS FAXED TO [facility]. PT NOTIFIED FRIEND TO PICK HER UP. PT ASSISTED OUT TO FRIENDS CAR VIA W/C. PT THEN WENT TO [facility] TO P/U PRESCRIPTION, FINDING THAT IT WASN'T COVERED BY INSURANCE. DR WATT NOTIFIED AND GIVEN [facility] PHONE NUMBER TO PROVIDE ANOTHER ALTERNATIVE.
== END 2021-07-19 12:47 | disposition home or self-care (01) | DRG 372 ==
LOC: ER 17:53 → MEDS 22:55
PROVIDERS: Family Medicine; Hospitalist; Student in an Organized Health Care Education/Training Program; ADMIT Internal Medicine
DX: A04.72 Enterocolitis due to Clostridium difficile, not specified as recurrent (principal); N17.9 Acute kidney failure, unspecified; E86.9 Volume depletion, unspecified; I12.9 Hypertensive chronic kidney disease with stage 1 through stage 4 chronic kidney disease, or unspecified chronic kidney disease; E66.9 Obesity, unspecified; Z68.30 Body mass index [BMI] 30.0-30.9, adult; E78.5 Hyperlipidemia, unspecified; E89.0 Postprocedural hypothyroidism; G47.00 Insomnia, unspecified; F41.9 Anxiety disorder, unspecified; N18.30 Chronic kidney disease, stage 3 unspecified; F32.A Depression, unspecified; Z28.21 Immunization not carried out because of patient refusal; Z85.048 Personal history of other malignant neoplasm of rectum, rectosigmoid junction, and anus; Z88.8 Allergy status to other drugs, medicaments and biological substances; Z88.5 Allergy status to narcotic agent; Z79.899 Other long term (current) drug therapy; Z90.710 Acquired absence of both cervix and uterus; Z98.890 Other specified postprocedural states; Z90.49 Acquired absence of other specified parts of digestive tract; Z87.891 Personal history of nicotine dependence
CPT/HCPCS: 36415; 74177; 80048; 80053; 80069; 83690; 83735; 84100; 84484; 85025; 93005; 93010; 96374; 96375; 99285-25; A9270; J1170; J1650; J2405; J7030; J7120; Q9967

== ENCOUNTER → 2021-09-16 | Outpatient (CLI) | payer OTHER ==
[~2021-09-16] MED LIST changes: +DIFICID200 MG PO; +VISBIOME 112.51 EACH PO
[2021-09-16 13:36] LABS: BASOPHILS ABSOLUTE AUTO 0.03 K/mm3 (0.00-0.23); BASOPHILS PERCENT AUTO 0 % (0-2); EOSINOPHILS ABSOLUTE AUTO 0.42 K/mm3 (0.00-0.68); EOSINOPHILS PERCENT AUTO 3 % (0-6); Hematocrit 32.9 % (33.0-51.0); Hemoglobin 10.9 g/dL (11.5-16.0); IMMATURE GRAN ABSOLUTE AUTO 0.06 K/mm3 (0.00-0.10); IMMATURE GRAN PERCENT AUTO 1 % (0-1); LYMPHOCYTES ABSOLUTE AUTO 0.93 K/mm3 (0.84-5.20); LYMPHOCYTES PERCENT AUTO 7 % (21-46); MONOCYTES ABSOLUTE AUTO 0.88 K/mm3 (0.16-1.47); MONOCYTES PERCENT AUTO 7 % (4-13); Mean Corpuscular HGB 29.7 pg (26.0-34.0); Mean Corpuscular HGB Conc 33.1 g/dL (31.5-36.5); Mean Corpuscular Volume 90 fL (80-100); Mean Platelet Volume 9.3 fL (9.1-12.4); NEUTROPHILS ABSOLUTE AUTO 10.84 K/mm3 (1.96-9.15); NEUTROPHILS PERCENT AUTO 82 % (41-73); Platelet Count 318 K/mm3 (150-400); RDW Coefficient Variation 13.8 % (11.7-14.2); RDW Standard Deviation 44.9 fL (35.1-46.3); Red Blood Cell Count 3.67 M/mm3 (3.80-5.20); White Blood Cell Count 13.16 K/mm3 (4.00-11.30)
[2021-09-16 13:41] LABS: Bun/Creatinine Ratio 17.5 (12.0-20.0); Calcium, Blood 8.4 mg/dL (8.5-10.1); Creatinine, Blood 1.43 mg/dL (0.40-1.00)
== END | disposition home or self-care (01) ==
LOC: LAB 13:31 → LAB SHORT 13:31
PROVIDERS: Physician Assistant Surgical
DX: R19.7 Diarrhea, unspecified (principal)
CPT/HCPCS: 80048; 85025

== ENCOUNTER 2021-12-14 16:23 | Emergency (ER) | payer OTHER ==
[~2021-12-14] VITALS: Ht 172.7 cm; Wt 86.2 kg
[2021-12-14] MEDS ORDERED: HYDR1TAB94 PO (19:29)
== END 2021-12-14 19:39 | disposition home or self-care (01) ==
LOC: ER 16:23
DX: S20.219A Contusion of unspecified front wall of thorax, initial encounter (principal); I10 Essential (primary) hypertension; E78.5 Hyperlipidemia, unspecified; E03.9 Hypothyroidism, unspecified; E11.9 Type 2 diabetes mellitus without complications; V43.62XA Car passenger injured in collision with other type car in traffic accident, initial encounter; Z79.899 Other long term (current) drug therapy; Z88.5 Allergy status to narcotic agent; Z88.8 Allergy status to other drugs, medicaments and biological substances
CPT/HCPCS: 71046; 71120; 72040; A9270

== ENCOUNTER 2023-11-15 11:17 | Emergency (ER) | payer OTHER ==
[~2023-11-15] VITALS: Ht 170.2 cm; Wt 84.8 kg
[2023-11-15 11:42] VITALS: BP 149/58
[2023-11-15] MEDS ORDERED: HYDR1TAB94 PO (12:24)
== END 2023-11-15 12:53 | disposition home or self-care (01) ==
LOC: ER 11:17
DX: S09.90XA Unspecified injury of head, initial encounter (principal); S80.212A Abrasion, left knee, initial encounter; I12.9 Hypertensive chronic kidney disease with stage 1 through stage 4 chronic kidney disease, or unspecified chronic kidney disease; E11.22 Type 2 diabetes mellitus with diabetic chronic kidney disease; N18.31 Chronic kidney disease, stage 3a; E03.9 Hypothyroidism, unspecified; W01.0XXA Fall on same level from slipping, tripping and stumbling without subsequent striking against object, initial encounter; Z88.5 Allergy status to narcotic agent; Z88.8 Allergy status to other drugs, medicaments and biological substances; Z79.890 Hormone replacement therapy; Z79.899 Other long term (current) drug therapy
CPT/HCPCS: 70450

== ENCOUNTER 2024-03-25 08:07 | Inpatient (IN) | payer OTHER ==
[~2024-03-25] VITALS: Ht 172.7 cm; Wt 81.1 kg
[2024-03-25] MEDS ORDERED: Ondansetron HCl 2 MG / ML 2ML Vial IV PRN ×2 (08:45→20:30)
[2024-03-25 09:04] LABS: BASOPHILS ABSOLUTE AUTO 0.04 K/mm3 (0.00-0.23); BASOPHILS PERCENT AUTO 0 % (0-2); EOSINOPHILS ABSOLUTE AUTO 0.08 K/mm3 (0.00-0.68); EOSINOPHILS PERCENT AUTO 1 % (0-6); Hematocrit 36.2 % (33.0-51.0); Hemoglobin 11.6 g/dL (11.5-16.0); IMMATURE GRAN ABSOLUTE AUTO 0.05 K/mm3 (0.00-0.10); IMMATURE GRAN PERCENT AUTO 0 % (0-1); LYMPHOCYTES ABSOLUTE AUTO 0.56 K/mm3 (0.84-5.20); LYMPHOCYTES PERCENT AUTO 4 % (21-46); MONOCYTES ABSOLUTE AUTO 0.66 K/mm3 (0.16-1.47); MONOCYTES PERCENT AUTO 5 % (4-13); Mean Corpuscular HGB 30.4 pg (26.0-34.0); Mean Corpuscular Volume 95 fL (80-100); Mean Platelet Volume 9.7 fL (9.1-12.4); NEUTROPHILS ABSOLUTE AUTO 12.99 K/mm3 (1.96-9.15); NEUTROPHILS PERCENT AUTO 90 % (41-73); Platelet Count 340 K/mm3 (150-400); RDW Coefficient Variation 12.8 % (11.7-14.2); RDW Standard Deviation 44.4 fL (35.1-46.3); Red Blood Cell Count 3.82 M/mm3 (3.80-5.20); White Blood Cell Count 14.38 K/mm3 (4.00-11.30)
[2024-03-25] MEDS ORDERED: NS 1,000 ML IV SCH (09:25)
[2024-03-25 09:26] LABS: Albumin, Blood 4.3 g/dL (3.4-5.0); Bilirubin, Total 0.2 mg/dL (0.1-1.0); Bun/Creatinine Ratio 24.8 (12.0-20.0); Calcium, Blood 10.3 mg/dL (8.5-10.1); Creatinine, Blood 3.22 mg/dL (0.40-1.00); Globulin, Blood 4.1 g/dL (2.2-4.0); Potassium, Blood 4.5 mmol/L (3.5-5.5); Total Protein, Blood 8.4 g/dL (6.4-8.2)
[2024-03-25 12:12] LABS: Adenovirus F 40/41 Not Detected (NOT DETECT); Astrovirus Not Detected (NOT DETECT); Campylobacter Sp Not Detected (NOT DETECT); Cryptosporidium Not Detected (NOT DETECT); Cyclospora Cayetanensis Not Detected (NOT DETECT); E. Coli O157 Not Detected (NOT DETECT); Entamoeba Histolytica Not Detected (NOT DETECT); Enteroaggregative E. coli-EAEC Not Detected (NOT DETECT); Enteropathogenic E. coli-EPEC Not Detected (NOT DETECT); Enterotoxigenic E. coli-ETEC Not Detected (NOT DETECT); Giardia Lamblia Not Detected (NOT DETECT); Norovirus GI/GII Not Detected (NOT DETECT); Plesiomonas Shigelloides Not Detected (NOT DETECT); Rotavirus A Not Detected (NOT DETECT); Salmonella Sp Not Detected (NOT DETECT); Sapovirus Not Detected (NOT DETECT); Shiga Toxin-prod E. coli-STEC Not Detected (NOT DETECT); Shigella/Enteroin E. coli-EIEC Not Detected (NOT DETECT); Vibrio Cholerae Not Detected (NOT DETECT); Vibrio Sp Not Detected (NOT DETECT); Yersinia Enterocolitica Not Detected (NOT DETECT)
[2024-03-25] MEDS ORDERED: Loperamide HCl 2 MG Cap PO PRN (12:20)
[2024-03-25] MEDS ORDERED: FLU VACC TS2024-25(6MOS UP)/PF 45 MCG/0.5 ML SYRINGE IM ONE (12:25)
[2024-03-25] MEDS ORDERED: Lactated Ringer's 1,000 ML IV SCH (12:25)
[2024-03-25] MEDS ORDERED: CYCL10 PO (14:08)
[2024-03-25] MEDS ORDERED: Prozac40 MG PO (14:09)
[2024-03-25] MEDS ORDERED: LEVSOD112 PO (14:10)
[2024-03-25] MEDS ORDERED: NIFE30ER PO (14:10)
[2024-03-25] MEDS ORDERED: ZESTRIL40 M1 PO (14:11)
[2024-03-25] MEDS ORDERED: Amlodipine Bes2.5 MG PO (14:12)
[2024-03-25] MEDS ORDERED: JARDIANCE25 MG PO (14:12)
[2024-03-25] MEDS ORDERED: AMIT50 PO (14:14)
[2024-03-25 14:44] VITALS: BP 145/59
[2024-03-25] MEDS ORDERED: Cyclobenzaprine HCl 10 MG Tab PO PRN (16:10)
--- NOTE | 2024-03-25 16:19 | NUR ---
ADMISSION/SHIFT NOTE: PATIENT ARRIVES TO ROOM AT 1400 VIA GURNEY FROM ER FOR DX'S OF CLYDE. PATIENT ADMISSION, MEDRIC AND SKIN ASSESSMENT c 2 RN'S VERIFIED COMPLETED. PATIENT ORIENTATED TO ROOM AND CALL SYSTEM. PATIENT A/OX4, PLEASANT AND COOPERATIVE c CARE. PATIENT DENIES CP/PRESSURE, N/V AND DIZZINESS. PATIENT REPORTS SHE HAD NAUSEOUS AT HOME AND DIRRHEA FOR 3 DAYS. PATIENT STOOL SAMPLE WAS COLLECTED AND SENT TO LAB WHILE SHE WAS IN ER c NEGATIVE RESULT. PATIENT AMBULATED TO BATHROOM, SHOWERED AND HAD 2 LIQUID STOOL SINCE ARRIVED TO UNIT. PATIENT HAS PIV TO R FOREARM INFUSING LR AT 100 MLS/HR. VITAL SIGNS REVIEWED. CALL LIGHT IN REACH.
[2024-03-25] MEDS ORDERED: Insulin Regular 100 UNIT/ML 10ML Vial SC SCH (16:30)
--- NOTE | 2024-03-25 16:32 | NUR ---
ADDITIONAL NOTE: PATIENT RENAL US WAS DONE IN ROOM THIS PM, AWAITING FOR RESULT.
[2024-03-25 20:01] VITALS: BP 118/50
[2024-03-25] MEDS ORDERED: Amitriptyline HCl 50 MG Tab PO SCH (21:00)
[2024-03-25] MEDS ORDERED: NIFEdipine 30 MG TabCR PO SCH (21:00)
[2024-03-25] MEDS ORDERED: rOPINIRole HCl 2 MG Tab PO SCH (21:00)
[2024-03-26 03:28] VITALS: BP 97/50
[2024-03-26 05:20] LABS: BASOPHILS ABSOLUTE AUTO 0.02 K/mm3 (0.00-0.23); BASOPHILS PERCENT AUTO 0 % (0-2); EOSINOPHILS ABSOLUTE AUTO 0.22 K/mm3 (0.00-0.68); EOSINOPHILS PERCENT AUTO 4 % (0-6); Hematocrit 29.2 % (33.0-51.0); Hemoglobin 9.3 g/dL (11.5-16.0); IMMATURE GRAN ABSOLUTE AUTO 0.01 K/mm3 (0.00-0.10); IMMATURE GRAN PERCENT AUTO 0 % (0-1); LYMPHOCYTES ABSOLUTE AUTO 1.16 K/mm3 (0.84-5.20); LYMPHOCYTES PERCENT AUTO 20 % (21-46); MONOCYTES ABSOLUTE AUTO 0.41 K/mm3 (0.16-1.47); MONOCYTES PERCENT AUTO 7 % (4-13); Mean Corpuscular HGB Conc 31.8 g/dL (31.5-36.5); Mean Corpuscular Volume 94 fL (80-100); Mean Platelet Volume 9.8 fL (9.1-12.4); NEUTROPHILS ABSOLUTE AUTO 4.01 K/mm3 (1.96-9.15); NEUTROPHILS PERCENT AUTO 69 % (41-73); Platelet Count 250 K/mm3 (150-400); RDW Coefficient Variation 12.9 % (11.7-14.2); RDW Standard Deviation 44.3 fL (35.1-46.3); White Blood Cell Count 5.83 K/mm3 (4.00-11.30)
[2024-03-26 05:57] LABS: Bun/Creatinine Ratio 31.9 (12.0-20.0); Calcium, Blood 8.7 mg/dL (8.5-10.1); Creatinine, Blood 2.16 mg/dL (0.40-1.00); Potassium, Blood 4.3 mmol/L (3.5-5.5)
[2024-03-26] MEDS ORDERED: Levothyroxine Sodium 0.112 MG Tab PO SCH (06:00)
--- NOTE | 2024-03-26 06:45 | NUR ---
AAOX4. INDEPENDENT IN ROOM. COOPERATIVE WITH CARES AND USES CALL LIGHT PRN NAUSEA @ BEGINNING OR SHIFT, ORDER FOR ZOFRAN REC'D. DIARRHEA IMPROVING, X1 DOSE OF IMMMODIUM. SLEPT WELL AND NO ACUTE CONCERNS OVERNIGHT.
[2024-03-26 07:39] VITALS: BP 115/52
[2024-03-26] MEDS ORDERED: Heparin Sodium 5000 Units/ML 1ML MDV SC SCH (09:00)
[2024-03-26 15:43] VITALS: BP 111/53
--- NOTE | 2024-03-26 18:33 | NUR ---
SHIFT SUMMARY PT A&OX4, VSS, AMB IND, TOLERATING PO, VOIDING, AND DENIED PAIN. PT DENIES DIARRHEA THIS SHIFT. NO OTHER ACUTE CHANGES. CALL LIGHT WITHIN REACH AND PT ABLE TO MAKE NEEDS KNOWN.
[2024-03-26 21:22] VITALS: BP 92/41
[2024-03-27 03:02] VITALS: BP 112/46
--- NOTE | 2024-03-27 07:19 | NUR ---
AAOX4, INDEPENDENT IN ROOM, CALLS PRN. NO DIAHRREA THIS SHIFT. NO ACUTE NEEDS OVERNIGHT, PT REPORTS FEELING BETTER.
[2024-03-27 07:48] VITALS: BP 112/50
[2024-03-27 12:45] LABS: BASOPHILS ABSOLUTE AUTO 0.02 K/mm3 (0.00-0.23); BASOPHILS PERCENT AUTO 0 % (0-2); EOSINOPHILS ABSOLUTE AUTO 0.17 K/mm3 (0.00-0.68); EOSINOPHILS PERCENT AUTO 3 % (0-6); Hematocrit 31.2 % (33.0-51.0); Hemoglobin 10.5 g/dL (11.5-16.0); IMMATURE GRAN ABSOLUTE AUTO 0.01 K/mm3 (0.00-0.10); IMMATURE GRAN PERCENT AUTO 0 % (0-1); LYMPHOCYTES ABSOLUTE AUTO 0.75 K/mm3 (0.84-5.20); LYMPHOCYTES PERCENT AUTO 13 % (21-46); MONOCYTES ABSOLUTE AUTO 0.38 K/mm3 (0.16-1.47); MONOCYTES PERCENT AUTO 6 % (4-13); Mean Corpuscular HGB 30.3 pg (26.0-34.0); Mean Corpuscular HGB Conc 33.7 g/dL (31.5-36.5); Mean Corpuscular Volume 90 fL (80-100); Mean Platelet Volume 9.5 fL (9.1-12.4); NEUTROPHILS ABSOLUTE AUTO 4.61 K/mm3 (1.96-9.15); NEUTROPHILS PERCENT AUTO 78 % (41-73); Platelet Count 237 K/mm3 (150-400); RDW Coefficient Variation 12.2 % (11.7-14.2); RDW Standard Deviation 39.9 fL (35.1-46.3); Red Blood Cell Count 3.47 M/mm3 (3.80-5.20); White Blood Cell Count 5.94 K/mm3 (4.00-11.30)
[2024-03-27 13:17] LABS: Albumin, Blood 3.3 g/dL (3.4-5.0); Bilirubin, Total 0.2 mg/dL (0.1-1.0); Bun/Creatinine Ratio 28.1 (12.0-20.0); Calcium, Blood 9.2 mg/dL (8.5-10.1); Creatinine, Blood 1.46 mg/dL (0.40-1.00); Globulin, Blood 3.4 g/dL (2.2-4.0); Total Protein, Blood 6.7 g/dL (6.4-8.2)
[2024-03-27 15:23] VITALS: BP 124/61
--- NOTE | 2024-03-27 15:45 | NUR ---
DISCHARGE NOTE PT DISCHARGED HOME AT 1540. PT PROVIDED W/ VERBAL AND WRITTEN INSTRUCTIONS AND REPORTED UNDERSTANDING. PT A&OX4, VSS, AMB IND, TOLERATING PO, VOIDING, AND DENIED PAIN. BELONGINGS WERE RETURNED AND PT WALKED OUT TO HER CAR IND.
== END 2024-03-27 15:40 | disposition home or self-care (01) | DRG 683 ==
LOC: ER 08:07 → MEDS 12:19 → ER 13:49 → MEDS 14:08 → ENPENDDIS 03-27 13:48 → MEDS 03-27 15:40
PROVIDERS: Emergency Medicine; Internal Medicine; ADMIT Family Medicine
DX: N17.9 Acute kidney failure, unspecified (principal); E87.20 Acidosis, unspecified; K52.9 Noninfective gastroenteritis and colitis, unspecified; E11.22 Type 2 diabetes mellitus with diabetic chronic kidney disease; I12.9 Hypertensive chronic kidney disease with stage 1 through stage 4 chronic kidney disease, or unspecified chronic kidney disease; E78.5 Hyperlipidemia, unspecified; N18.31 Chronic kidney disease, stage 3a; H91.90 Unspecified hearing loss, unspecified ear; G47.00 Insomnia, unspecified; M85.88 Other specified disorders of bone density and structure, other site; G25.81 Restless legs syndrome; F41.8 Other specified anxiety disorders; E89.0 Postprocedural hypothyroidism; Z98.890 Other specified postprocedural states; Z90.710 Acquired absence of both cervix and uterus; Z90.49 Acquired absence of other specified parts of digestive tract; Z88.5 Allergy status to narcotic agent; Z88.8 Allergy status to other drugs, medicaments and biological substances; Z85.048 Personal history of other malignant neoplasm of rectum, rectosigmoid junction, and anus; Z86.19 Personal history of other infectious and parasitic diseases; Z87.891 Personal history of nicotine dependence
CPT/HCPCS: 36415; 71045; 76770; 80048; 80053; 83690; 83735; 85025; 87507; 93005; 93010; 96361; 96374; 99285-25; A9270; J1644; J2405; J7030; J7120

== ENCOUNTER → 2024-06-27 | Outpatient (CLI) | payer OTHER ==
[~2024-06-27] MED LIST changes: +AMIT50 PO; +Amlodipine Bes2.5 MG PO; +JARDIANCE25 MG PO; +LEVSOD112 PO; +NIFE30ER PO; +Prozac40 MG PO
[2024-06-27 13:05] LABS: Source, Urine Clean Catch
[2024-06-27 15:48] LABS: Appearance, Urine Clear (Clear); Bilirubin, Urine Neg (Neg); Blood, Urine Neg (Neg); Color, Urine Yellow (P-Yellow); Glucose Qualitative, Urine Neg (Neg); Ketones, Urine Neg (Neg); Leukocyte Esterase, Urine Neg (Neg); Nitrite, Urine Neg (Neg); Protein, Urine Neg (Neg); Urobilinogen, Urine NORM (Normal)
== END ==
LOC: LAB 13:01 → LAB SHORT 13:01
PROVIDERS: Internal Medicine Nephrology
DX: N18.32 Chronic kidney disease, stage 3b (principal)
CPT/HCPCS: 81003

== ENCOUNTER → 2025-02-19 | Outpatient (CLI) | payer OTHER ==
[2025-02-19 10:33] LABS: BASOPHILS ABSOLUTE AUTO 0.02 K/mm3 (0.00-0.23); BASOPHILS PERCENT AUTO 0 % (0-2); EOSINOPHILS ABSOLUTE AUTO 0.19 K/mm3 (0.00-0.68); EOSINOPHILS PERCENT AUTO 2 % (0-6); Hematocrit 38.6 % (33.0-51.0); Hemoglobin 12.9 g/dL (11.5-16.0); IMMATURE GRAN ABSOLUTE AUTO 0.03 K/mm3 (0.00-0.10); IMMATURE GRAN PERCENT AUTO 0 % (0-1); LYMPHOCYTES ABSOLUTE AUTO 1.06 K/mm3 (0.84-5.20); LYMPHOCYTES PERCENT AUTO 11 % (21-46); MONOCYTES ABSOLUTE AUTO 0.62 K/mm3 (0.16-1.47); MONOCYTES PERCENT AUTO 6 % (4-13); Mean Corpuscular HGB Conc 33.4 g/dL (31.5-36.5); Mean Corpuscular Volume 90 fL (80-100); NEUTROPHILS ABSOLUTE AUTO 8.11 K/mm3 (1.96-9.15); NEUTROPHILS PERCENT AUTO 81 % (41-73); NRBC ABSOLUTE 0.00 K/mm3 (0.00-0.02); NRBC Auto 0.0 /100 WBC (0.0-0.2); Platelet Count 349 K/mm3 (150-400); RDW Coefficient Variation 12.8 % (11.7-14.2); RDW Standard Deviation 41.8 fL (35.1-46.3)
[2025-02-19 10:49] LABS: Alanine Aminotransfer (ALT/SGP 28.0 U/L (12-78); Albumin, Blood 4.0 g/dL (3.4-5.0); Albumin/Globulin Ratio 1.0 (0.8-1.8); Anion Gap 13.0 mmol/L (3-11); Aspartate Aminotrans (AST/SGOT 23.0 U/L (12-37); Bilirubin, Total 0.3 mg/dL (0.1-1.0); Blood Urea Nitrogen 39.0 mg/dL (8-24); CO2, Blood 26.0 mmol/L (21-32); Calcium, Blood 9.1 mg/dL (8.5-10.1); Chloride, Blood 106.0 mmol/L (98-108); Creatinine, Blood 1.61 mg/dL (0.40-1.00); Globulin, Blood 4.2 g/dL (2.2-4.0); Glucose, Blood 100.0 mg/dL (70-99); Magnesium, Blood 2.1 mg/dL (1.6-2.4); Potassium, Blood 3.2 mmol/L (3.5-5.5); Sodium, Blood 142.0 mmol/L (136-145); Total Protein, Blood 8.2 g/dL (6.4-8.2)
== END ==
LOC: LAB SHORT 10:29 → LAB 10:29
PROVIDERS: Chiropractor
DX: E86.0 Dehydration (principal)
CPT/HCPCS: 80053; 83735; 85025